=== PATIENT | female | born 1960 | race Caucasian/White ===

== ENCOUNTER 2019-12-31 16:21 | Outpatient (CLI) | payer BC, SELFPAY ==
--- NOTE | 2019-12-31 | XR_ITS ---
WS: [id number] WRIST RIGHT TECHNIQUE: 3 views of the right wrist CLINICAL INFORMATION: PT FELL THIS AM, RT WRIST INJURY COMPARISON: None. FINDINGS: Impacted fracture distal radial metaphysis with mild dorsal angulation of the distal fragment. Intra- articular extension. Distal ulna is normal. Soft tissue edema. Scaphoid appears normal. 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 XR/XR wrist RT min 3V* [id number] IMPRESSION: 1. Impacted fracture distal radial metaphysis with mild dorsal angulation dist al fragment. Intra-articular extension. 2. Soft tissue edema.
== END 2019-12-31 16:22 | disposition home or self-care (01) ==
LOC: RADOUTREAD 01-01 07:34
PROVIDERS: Family Provider Family Medicine; PCP Family Medicine; Visit Provider Nurse Practitioner
DX: Z01.89 Encounter for other specified special examinations (principal)

== ENCOUNTER 2020-01-02 09:07 | Day surgery (SDC) | payer BC, SELFPAY ==
[2020-01-01 16:17] VITALS: BMI 17.3
[2020-01-02] VITALS (12 sets, daily range): BP systolic 130–194; BP diastolic 80–115; PULSE 78–109; RESP 12–20; TEMP 36.1–37.1; O2SAT 94–100
--- NOTE | 2020-01-02 | XR_ITS ---
WS: [id number] Right wrist, AP and lateral C-arm fluoroscopy views of the right wrist, 01/02/2020 Clinical Data: ORIF RIGHT WRIST Comparison: Right wrist, 12/31/2019. Findings: Internal fixation of the distal radial fracture with a ventral plate attached with at least 9 orthope dic screws is seen. The distal ulna is normal. XR/XR wrist RT 2V [id number] Impression: Internal fixation of distal right radial fracture.
--- NOTE | 2020-01-02 | SCC_ITS ---
Procedure Done: Open reduction internal fixation right distal radius comminuted intra-articular displaced fracture utilizing the Raffi intermediate short distal radius plate 96.5 seconds of fluoroscopic guidance, for a cumulative dose of 1.21 mGy, was provided to Dr. Briones by the radiology department. C-arm images of the RIGHT wrist were saved for the patient's permanent record. [facility]
--- NOTE | 2020-01-02 10:13 | ANES.PREANE2 ---
Pre-Anesthetic Assessment Pre-Anesthetic Assessment: Height/Weight: Height 1.6 m Weight 44.452 kg Preop Diagnosis: Right Distal Radius Fracture Proposed Procedure: Operation Date: 01/02/20 11:10 Proposed Procedures p ORIF Wrist [id number](Not Applicable) - Nelsy Briones MD Last Intake: 20:00 Social: Social History: Tobacco Packs per day: 1 Pack years: 44 Exam: Pre-Anes Outpt Exam: alert, oriented x 3, clear to auscultation bilaterally and regular rate & rhythm Airway: Submandibular: WNL Cervical ROM: WNL MP: 1 Dentition: False, Partials and Full CV/HEM: CV/HEM: HTN Metabolic: Metabolic: Hyperlipidemia Anesthetic Plan: ASA status: 3 PFSH Anesthesia PFSH: Social History Smoking and tobacco status: current every day smoker cigarettes Packs smoked per day: 1 Alcohol intake: current Data Anesthesia Cardiac Studies: No Data to Display
--- NOTE | 2020-01-02 10:20 | W.PM.OPSUD ---
Surgery/Procedure H&P Update DATE OF PROCEDURE: January 02, 2020 DATE H&P PERFORMED: 01/01/20 H&P UPDATE INFORMATION: I have reviewed H&P completed within last 30 days, I have examined patient prior to procedure and H&P to be scanned into chart PREOP DIAGNOSIS: Right Distal Radius Fracture PLANNED PROCEDURE: Operation Date: 01/02/20 11:10 Proposed Procedures p ORIF Wrist [id number](Not Applicable) - Nelsy Briones MD
--- NOTE | 2020-01-02 10:39 | ANES.PROC ---
Anesthesia Procedures Procedure/Date: 01/02/20 Right Axillary Nerve Block Procedure Narrative: R&B's of right axillary nerve block for ORIF right wrist disc'd to assist with postoperative pain control. Verbal and written consent obtained. Verse 2+1+1mg, Fentanyl 50ug. US utilized to identify right axillary PEREZ. Nerve stimulator at 0.8 mAMPS. 30cc total volume Ropvicaine 0.5% + Lido 2% with epi in 3:1 mix, in 5ccc incrments without problems/complications. Nerve Block ^: Nerve Block 1: Main Anesthesia: general anesthesia Time Out Performed: Yes Consent: requested by attending/covering physician, from patient, risks and benefits reviewed and patient agrees to proceed Nerve block location: axillary Anesthesia monitors applied: pulse oximetry Nerve block position: supine Anesthetic Used: lidocaine 2%, ropivicaine 0.5% and with epi Amount of anesthesia used (mL): 30 Ultrasound used to: other Nerve Stimulator Used?: Yes Interscalene/Femoral BLK: 2 stimuplex 22 g needle used for position and inplane approach Injection: neg aspiration of heme Patient Tolerated Procedure: well and no complications
[2020-01-02] MEDS: sodium chloride 0.9% 1,000 ML 30 ML IV (10:52)
[2020-01-02] MEDS: fentaNYL 50 mcg/mL INJ 2mL 100 MCG IVP (10:53)
[2020-01-02] MEDS: midazolam 1 mg/mL INJ 5 ML 5 MG IVP (10:54)
[2020-01-02] MEDS: vancomycin 1,000 MG SDV 1000 MG IRRIGATION (13:11)
[2020-01-02] MEDS: labetalol 5 mg/mL SDV 20mL IVP (14:25)
--- NOTE | 2020-01-02 14:46 | P.OP_ITS ---
Operative Report Date of procedure: January 02, 2020 Pre-op Diagnosis: Right Distal Radius and ulnar fractures with intra-articular extension and comminution Post-op diagnosis: same Procedure Done: Open reduction internal fixation right distal radius comminuted intra-articular displaced fracture utilizing the Raffi intermediate short distal radius plate Specimens removed/disposition: None Pathology: none sent Surgeon: Nelsy Briones [employer] Barista: [facility] OR technicians Anesthesia: General (Intubated) Estimated blood loss (mL): 5 Tourniquet time (min): 60 IV fluids (mL): 1,100 Urine output (mL): 0 Complications: None Findings: Comminuted distal radius fracture which was intra-articular with multiple fragments and significant shortening Condition: stable Disposition: same day Brief History: This 59-year-old woman was in her usual state of health when she fell suffering the above injury. The patient was seen at urgent care at [facility]. She was found to have a comminuted displaced intra-articular distal radius fracture with significant shortening. She was seen in the office and plans were made for surgical intervention as described above. Questions were answered and consents were signed. Procedure: Patient was brought to the operating theater, and after undergoing adequate general anesthesia per endotracheal tube preceded by an axillary block in the preop holding area, the patient's right upper extremity was prepped and draped in usual fashion utilizing DuraPrep. The patient had a tourniquet placed high on the arm prior to prepping and draping. Following prepping and draping, the arm was exsanguinated and the tourniquet was elevated. Total tourniquet time was 60 minutes at 250 mmHg. Prior to commencement of the surgical procedure, a surgical pause was performed. At the time of the surgical pause, we confirmed the site and side of surgery as well as the patient's identity and preoperative surgical markings. We also confirmed availability of equipment and appropriate preoperative IV antibiotics which was Ancef 2g. Fluoroscopy was also brought into position so that we could visualize the fracture and hardware throughout the surgical procedure. The fracture was evaluated prior to tourniquet placement. Following elevation of the tourniquet as well as the surgical pause, an incision was made along the palmaris longus and continued down onto the volar surface of the radius. Care was taken to avoid injury throughout the surgical procedure to the median nerve as well as to the radial artery. The flexor carpi radialis was retracted medially. We were able to essentially elevate the sheath of the flexor carpi radialis and then I was able to place my finger directly onto the distal radius. For the most part, the patient did her own dissection at the time of her injury. Soft tissues were elevated off the distal radius to allow access to the fracture and also to the volar aspect of the distal radial shaft. Fluoroscopy was used to determine whether or not the reduction was appropriate. We were able to reduce the fracture with some difficulty due to the significant comminution and osteopenia. We then evaluated the plate and chose the short anatomic 2 hole intermediate plate for the right distal radius. The plate was attached proximally and distally without difficulty. A combination of locking and nonlocking screws were utilized to attach the plate utilizing exclusively locking screws distally. We had excellent fixation and reduction of the fracture. Fluoroscopy was utilized during the procedure. Once the plate was fully attached, we had a near anatomic position to the distal radius and the distal radius was out to length. Being satisfied with position, the area was copiously irrigated. There were no fascial tissues to close, and therefore we closed the subcutaneous tissues with 3-0 interrupted Monocryl. We then placed a subcuticular 4-0 Monocryl suture which was running. This was followed by Dermabond, Steri-Strips, Telfa and Tegaderm. A volar splint was wrapped into position over soft roll and this was wrapped in place with an Kirby wrap. The tourniquet was released after 60 minutes. There were no complications. There were no specimens. Patient was returned to recovery room in a satisfactory condition. She was subsequently discharged home with family. She will follow- up with me as scheduled in her discharge instructions.
== END 2020-01-02 16:30 | disposition home or self-care (01) ==
PROVIDERS: Family Provider Family Medicine; PCP Family Medicine; Visit Provider Specialist
PROC: (CPT 25609; principal; 2020-01-02 10:50)
DX: S52.501A Unspecified fracture of the lower end of right radius, initial encounter for closed fracture (principal); S52.601A Unspecified fracture of lower end of right ulna, initial encounter for closed fracture; W19.XXXA Unspecified fall, initial encounter; F17.210 Nicotine dependence, cigarettes, uncomplicated; I10 Essential (primary) hypertension; E78.5 Hyperlipidemia, unspecified
CPT/HCPCS: 25609; 12345; 73100; 76000; 96374; 96375; C1713; J0690; J1100; J2001; J2250; J2405; J2704; J2795; J3010; J3370; J3490; J7030

== ENCOUNTER → 2020-01-15 10:38 | Outpatient (BNVA) | payer BC, SELFPAY | PROVIDERS: Family Provider Family Medicine; PCP Family Medicine; Visit Provider Specialist | DX: Z48.89 Encounter for other specified surgical aftercare (principal); S52.501A Unspecified fracture of the lower end of right radius, initial encounter for closed fracture | CPT/HCPCS: 73110 ==

== ENCOUNTER 2020-01-15 15:37 | Outpatient (CLI) | payer BC, SELFPAY | END 2020-01-15 15:38 | disposition home or self-care (01) | LOC: SPT 15:38 | PROVIDERS: Family Provider Family Medicine; PCP Family Medicine; Visit Provider Specialist | DX: Z46.89 Encounter for fitting and adjustment of other specified devices (principal); S52.571D Other intraarticular fracture of lower end of right radius, subsequent encounter for closed fracture with routine healing; X58.XXXD Exposure to other specified factors, subsequent encounter | CPT/HCPCS: L3982 ==

== ENCOUNTER → 2020-02-02 08:12 | Outpatient (BNVA) | payer BC, SELFPAY | PROVIDERS: Family Provider Family Medicine; PCP Family Medicine; Visit Provider Specialist | DX: Z48.89 Encounter for other specified surgical aftercare (principal); S52.501A Unspecified fracture of the lower end of right radius, initial encounter for closed fracture; X58.XXXA Exposure to other specified factors, initial encounter | CPT/HCPCS: 73110 ==

== ENCOUNTER → 2022-04-04 15:20 | Outpatient (BNVA) | payer OTHER, SELFPAY | PROVIDERS: Family Provider Family Medicine; Visit Provider Family Medicine | DX: F17.200 Nicotine dependence, unspecified, uncomplicated (principal); F10.10 Alcohol abuse, uncomplicated; I10 Essential (primary) hypertension; K52.9 Noninfective gastroenteritis and colitis, unspecified | CPT/HCPCS: 80053; 84439; 84443; 85025 ==

== ENCOUNTER 2022-11-05 06:00 | Outpatient (RCR) | payer OTHER, SELFPAY | END 2022-12-05 23:59 | disposition home or self-care (01) | LOC: SPT 06:00 | PROVIDERS: PCP Family Medicine; Visit Provider Internal Medicine | DX: I63.9 Cerebral infarction, unspecified (principal); R53.1 Weakness; R26.0 Ataxic gait | CPT/HCPCS: 97110; 97530 ==

== ENCOUNTER → 2023-08-09 12:59 | Outpatient (BNVA) | payer OTHER, SELFPAY | PROVIDERS: Family Provider Family Medicine; PCP Family Medicine; Visit Provider Family Medicine | DX: F10.10 Alcohol abuse, uncomplicated (principal); R68.89 Other general symptoms and signs; J06.9 Acute upper respiratory infection, unspecified; R53.82 Chronic fatigue, unspecified; R53.81 Other malaise; F17.200 Nicotine dependence, unspecified, uncomplicated; Z11.52 Encounter for screening for COVID-19 | CPT/HCPCS: 80053; 81000; 84443; 85025; 87400; 87426 ==

== ENCOUNTER 2023-08-11 13:43 | Emergency (ER) | payer OTHER, SELFPAY ==
[2023-08-11] VITALS (14 sets, daily range): BP systolic 137–257; BP diastolic 73–134; PULSE 83–95; RESP 14–22; TEMP 36.6; O2SAT 96–100
--- NOTE | 2023-08-11 13:57 | ED_ITS ---
HPI - Weakness General: Chief complaint: Weakness Stated complaint: stroke like symptoms Time Seen by Provider: 08/11/23 13:53 Source: patient Mode of arrival: ambulatory History of Present Illness: 61-year-old female presents emergency room complaining of generalized weakness particular in the lower extremities been ongoing for several weeks. Seen her primary care doctor yesterday due to extensive review of systems and evaluation. She had some elevation of transaminases and alk phos as well as some hyponatremia her hemoglobin is normal her platelets were normal. She does admit to regular use of alcohol 6 pack or more per day and has been doing this for decades. She has no focal neurologic deficits. No suggestion of a stroke NIH score at the time of presentation is 0. Reviewing her primary care doctor's note yesterday these are similar findings as she presented to his office. Laboratory tests from yesterday were reviewed but not repeated today as there is been no significant change in symptoms or any new or worsening of her chronic symptoms. MD Complaint: generalized weakness Relieving factors: none Exacerbating factors: exertion (Fatigue worsens when she goes for a walk) Associated symptoms: Denies chest pain, chills, dysuria, fever(s) or headache(s) Review of Systems Const: Reports: fatigue and malaise; Denies: fever(s) or chills Card: Denies: chest pain Resp: Denies: dyspnea GI: Denies: abdominal pain : Denies: dysuria Musc: Denies: neck pain or back pain Skin/Breast: Denies: pruritus Neuro: Denies: headache(s) [facility] ED PFSH: Medical History Alcohol abuse Closed fracture of distal ends of right radius and ulna Hypertension Insomnia Nicotine addiction Family History Father Stroke Denies family history of Hypertension Social History Smoking and tobacco status: current every day smoker cigarettes Packs smoked per day: 1 Alcohol intake: current Substance/Drug Use: never Physical Exam Const: COMMON NORMALS: no acute distress GENERAL APPEARANCE: cooperative and comfortable ORIENTATION/CONSCIOUSNESS: Yes awake, Yes oriented to person, Yes oriented to place and Yes oriented to time HENMT: COMMON NORMALS: normocephalic, atraumatic and hearing grossly normal bilaterally HEAD & SCALP: normocephalic and atraumatic Resp: COMMON NORMALS: normal respiratory effort, No retractions, No use of accessory muscles and clear to auscultation bilaterally AUSCULTATION: clear to auscultation bilaterally Cardio: COMMON NORMALS: regular rate, regular rhythm and No murmurs present (Cardio) RATE: regular rate RHYTHM: regular rhythm GI: COMMON NORMALS: Soft to palpation and No hepatosplenomegaly present AUSCULTATION: Yes normoactive bowel sounds PALPATION: Yes Soft to palpation, No Tenderness to palpation present (GI), No Guarding due to palpation present (GI) and Yes No hepatosplenomegaly present Extremity: COMMON NORMALS: normal to inspection, capillary refill normal, no clubbing, cyanosis or edema, no calf tenderness and no pedal edema Neuro: SENSORIUM/ORIENTATION: Yes oriented to person, Yes oriented to place and Yes oriented to time Skin: COMMON NORMALS: no rashes or lesions noted GENERAL SKIN EXAM: no rashes or lesions noted Course Vital Signs: Vital signs: Vital Signs Temperature 97.8 F 08/11/23 13:47 Pulse Rate 84 08/11/23 15:00 Respiratory Rate 19 H 08/11/23 15:00 Blood Pressure 137/73 08/11/23 15:00 Pulse Oximetry 96 08/11/23 15:00 Oxygen Delivery Me thod Room Air 08/11/23 13:47 MDM - Weakness Medical Decision Making Labs reviewed from yesterday. Blood pressure improved with medications given we will discharge patient home on amlodipine 5 mg daily lisinopril 10 mg daily. Encourage abstinence from alcohol. No acute findings she certainly does not appear to have had a stroke at this point there is no focal neurologic deficits this is been a longstanding issue per her history to me and to what she discussed with Dr. Aguilar yesterday recommend that she follow-up with Dr. Aguilar for further evaluation certainly should see him within the next week to reevaluate his her blood pressure. Medical Records I reviewed the patient's medical records. Lab Data I reviewed the patient's lab results. No radiology studies performed this visit Discharge Plan Discharge Patient Disposition: Home Clinical Impression: Hypertension, Alcohol abuse, Chronic fatigue and malaise Condition: Stable Prescriptions: New amlodipine 5 mg tablet 5 mg PO DAILY Qty: 30 0RF lisinopril 10 mg tablet 10 mg PO DAILY Qty: 30 0RF No Action albuterol sulfate 90 mcg/actuation HFA aerosol inhaler 2 puff inhalation Q6H PRN (Reason: shortness of breath or wheezing) Qty: 8.5 5RF multivitamin Tablet 1 tab PO DAILY Tylenol Sinus Congestion Pain 2-5-325 mg Tablet 1 - 2 tab PO DAILY PRN (Reason: Sinus Symptoms) Aspir-81 81 mg Tablet,Delayed Release (Dr/Ec) 81 mg PO QAM Blood Builder 1 cap PO DAILY trazodone 50 mg tablet 50 mg PO BEDTIME PRN (Reason: Sleep) Discharge Orders: Discharge ED (Routine); Ordered 08/11/23 Ordered By: Gibran Thompson Referrals: Sergo Aguilar MD [Primary Care Provider] - Discharge Diet: Usual diet Discharge Activity: Increase activity as tolerated Patient Instructions: Opioid Safety, Pain Management Activity Restrictions/Additional Instructions: You were seen today for weakness and fatigue. The laboratory tests that your primary care doctor did yesterday were reviewed. There is some mild elevation of liver enzymes this is likely due to alcohol intake. Your blood pressure was markedly elevated when you arrived. You are given prescriptions for 2 oral antihypertensives both are once daily follow-up with your primary care doctor. Coding Level of Care Code ED Customer Service Security Officer for Samantha Clemens
[2023-08-11] MEDS: hyDRALAzine 20 mg/mL INJ 1 mL IVP (14:31)
[2023-08-11] MEDS: labetalol 5 mg/mL SDV 20mL 10 MG IVP (14:31)
[2023-08-11] MEDS: amlodipine 10 mg Tablet PO (14:32)
== END 2023-08-11 16:08 | disposition home or self-care (01) ==
PROVIDERS: Emergency Provider Family Medicine; PCP Family Medicine
DX: I10 Essential (primary) hypertension (principal); F10.10 Alcohol abuse, uncomplicated; R53.83 Other fatigue; R53.81 Other malaise; Z79.02 Long term (current) use of antithrombotics/antiplatelets; F17.210 Nicotine dependence, cigarettes, uncomplicated
CPT/HCPCS: 96374; 96375; 99284; J0360; J3490

== ENCOUNTER → 2023-08-15 13:05 | Outpatient (BNVA) | payer OTHER, SELFPAY | PROVIDERS: PCP Family Medicine; Visit Provider Family Medicine | DX: M60.9 Myositis, unspecified (principal); R53.81 Other malaise; R53.82 Chronic fatigue, unspecified; E55.9 Vitamin D deficiency, unspecified | CPT/HCPCS: 82085; 82306; 82550; 82607; 82746; 85651 ==

== ENCOUNTER 2023-08-28 06:31 | Inpatient (IN) | payer OTHER, SELFPAY ==
--- NOTE | 2023-08-28 06:33 | CTR_ITS ---
PROCEDURE INFORMATION: Exam: CT Head Without Contrast Exam date and time: 08/28/2023 6:30 AM Age: 63 years old Clinical indication: Stroke-like symptoms; Lt upper extremity and lt lower extremity weakness; Additional info: Stroke like symptoms TECHNIQUE: Imaging protocol: Computed tomography of the head without contrast. Radiation optimization: All CT scans at this facility use at least one of these dose optimization techniques: automated exposure control; mA and/or kV adjustment per patient size (includes targeted exams where dose is matched to clinical indication); or iterative reconstruction. Other technique: STROKE PROTOCOL was implemented. REPORTING DATA: Count of CT and Cardiac NM exams in prior 12 months: This patient has received 0 known CTs and 0 known cardiac nuclear medicine studies in the 12 months prior to the current study. COMPARISON: No relevant prior studies available. RADIATION DOSE METRICS: Total DLP (mGy-cm): 1006.5 FINDINGS: Brain: There is no evidence of intracranial hemorrhage. No mass effect or midline shift. There are mild confluent periventricular hypodensities consistent with chronic microischemic changes of white matter. 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 (01/29 - , , - ) Cerebral ventricles: The ventricles and sulci are appropriate for the patient's age. Paranasal sinuses: There are no air-fluid levels. Mastoid air cells: The visualized mastoid air cells are well aerated. Bones/joints: No acute fracture. Soft tissues: Unremarkable. CT/CT head wo con* [id number] IMPRESSION: 1. 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 If acute infarction is strongly suspected, consider correlation with MRI, if clinically indicated. 2. No acute intracranial findings. 3. Mild cerebral small-vessel disease. ASSESSMENT: ASPECTS ([place] Stroke Program Early CT Score) is 10.
[2023-08-28 06:34] VITALS: BP 174/86; PULSE 83; RESP 16; TEMP 36.5; O2SAT 95; BMI 19.1
--- NOTE | 2023-08-28 06:44 | W.ED.NEUROSD ---
HPI - Neuro Symptoms/Deficit General: Chief Complaint: Neuro Symptoms/Deficit Stated Complaint: stroke like symptoms Time Seen by Provider: 08/28/23 06:44 Source: patient and family Mode of arrival: EMS History of Present Illness: 63-year-old female presents to the emergency room with complaints of inability to move her left leg. She woke up this way this morning. She reports that yesterday around 6:30 PM she went to take her boots off and her left leg felt weak for a time like it was going to give out she had a little difficulty that seem to return to normal after that and then around 1030 she went to bed. She states at that time she went to bed and everything seemed to be functioning normally. When she woke up this morning around 5:30 AM she was unable to move her left leg she also has some weakness in her left arm. Her speech is normal. She is not having any visual difficulty. Her initial NIH score is 7. Her last known well is approximately 10:30 PM, making her 8 hours from last known well at the time she presented to the emergency room. Patient was seen in the emergency room 2 week ago with elevated blood pressure and started on antihypertensives Onset (ago): hour(s) (8) Time: 06:30 Last Observed Normal: 22:30 Timing confirmed by: family member Location: left arm and left leg Severity: moderate Quality: weak and numb Relieving factors: none Exacerbating factors: none Context: other (Wake-up symptoms) On Anticoagulants: No Associated symptoms: Reports tingling; Deny chest pain, cough, diaphoresis, fevers/chills, headache(s), anorexia, malaise, nausea, seizures, short of breath, syncope, vertigo, vomiting or weakness Treatments Prior to Arrival: Aspirin (Takes 81 mg aspirin daily) Review of Systems Const: Denies: malaise or diaphoresis Card: Denies: chest pain or syncope Resp: Denies: dyspnea GI: Denies: nausea or vomiting : Denies: dysuria, urinary frequency or urinary urgency Musc: Denies: neck pain or back pain Skin/Breast: Denies: rash Neuro: Denies: headache(s) or vertigo PFS ED PFSH: Medical History Alcohol abuse Closed fracture of distal ends of right radius and ulna Hypertension Insomnia Nicotine addiction Family History Father Stroke Denies family history of Hypertension Social History Smoking and tobacco/nicotine status: current every day tobacco/nicotine user cigarettes Packs smoked per day: 1 Alcohol intake: current Substance/Drug Use: never NIH stroke score NIHSS: Level Of Consciousness - 1a: 0 Level Of Consciousness Questions - 1b: Both Correct Level Of Consciousness Commands - 1c: Both Correct Best Gaze - 2: Normal Visual [place] - 3: No Visual Loss Facial Palsy - 4: Normal Motor Arm Right - 5: No Drift Motor Arm Left - 5: Drift Motor Leg Right - 6: No Drift Motor Leg Left - 6: No Effort Against [place] Limb Ataxia - 7: Present In Two Limbs Sensory - 8: Mild To Moderate Loss Best Language - 9: No Aphasia Dysarthia - 10: Normal Extinction And Inattention - 11: 0 Score: Total Score: 7 Physical Exam Const: GENERAL APPEARANCE: cooperative and comfortable ORIENTATION/CONSCIOUSNESS: Yes awake, Yes oriented to person, Yes oriented to place and Yes oriented to time HENMT: COMMON NORMALS: normocephalic, atraumatic and hearing grossly normal bilaterally HEAD & SCALP: normocephalic and atraumatic Resp: COMMON NORMALS: normal respiratory effort, No retractions, No use of accessory muscles and clear to auscultation bilaterally AUSCULTATION: clear to auscultation bilaterally Cardio: COMMON NORMALS: regular rate, regular rhythm and No murmurs present (Cardio) RATE: regular rate RHYTHM: regular rhythm GI: COMMON NORMALS: Soft to palpation and No hepatosplenomegaly present AUSCULTATION: Yes normoactive bowel sounds PALPATION: Yes Soft to palpation, No Tenderness to palpation present (GI), No Guarding due to palpation present (GI) and Yes No hepatosplenomegaly present Extremity: COMMON NORMALS: capillary refill normal, no clubbing, cyanosis or edema, no calf tenderness and no pedal edema Neuro: SENSORIUM/ORIENTATION: Yes oriented to person, Yes oriented to place and Yes oriented to time OTHER: NIH 7 see documentation below Skin: COMMON NORMALS: no rashes or lesions noted GENERAL SKIN EXAM: no rashes or lesions noted Course Vital Signs: Vital signs: Vital Signs Temperature 97.7 F 08/28/23 06:34 Pulse Rate 85 08/28/23 07:41 Respiratory Rate 16 08/28/23 06:34 Blood Pressure 153/118 08/28/23 07:41 Pulse Oximetry 96 08/28/23 07:41 Oxygen Delivery Me thod Room Air, Nasal C annula, Aerosol Ma sk 08/28/23 06:34 MDM - Neuro Symptoms/Deficit Medical Decision Making Acute CVA with an NIH of 7. She is outside of the timeframe for any thrombolytics. 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 Will admit for further work-up of her CVA. We will also need to be watched closely for alcohol withdrawal given her history. Permissive hypertension at this time. Medical Records I reviewed the patient's medical records. Lab Data I reviewed the patient's lab results. 08/28/23 06:43 08/28/23 06:[address] 08/28/23 06:33 IMPRESSION: 1. 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 If acute infarction is strongly suspected, consider correlation with MRI, if clinically indicated. 2. No acute intracranial findings. 3. Mild cerebral small-vessel disease. ASSESSMENT: ASPECTS ([place] Stroke Program Early CT Score) is 10. Head/Neck CTA 08/28/23 06:45 IMPRESSION: 1. Occlusion of the proximal petrous segment of the left internal carotid artery with moderate to severe stenosis of the remainder of the left internal carotid artery. 2. Otherwise patent [id number]. IMPRESSION: 1. Complete occlusion the proximal left internal carotid artery with severe stenosis of the remainder of the cervical segment. 2. Mild stenosis of the proximal right internal carotid artery. REFERENCES: NASCET CRITERIA. The degree of stenosis in the cervical segment of the internal carotid artery is based on NASCET criteria. Normal is no stenosis. Mild is less than 50% stenosis. Moderate is 50-69% stenosis. Severe is 70% to 99% stenosis. Total occlusion is no detectable patent lumen. ADDENDUM: 08/28/23 [id number] THIS REPORT CONTAINS FINDINGS THAT MAY BE CRITICAL TO PATIENT CARE. The findings were verbally communicated via telephone conference with GIBRAN MARQUIS at 7:55 AM CDT on 08/28/2023. The findings were acknowledged and understood. Laboratory Results WBC 6.27 10^3/uL (3.29-11.43) 08/28/23 06:43 RBC 4.87 10^6/uL (3.85-5.65) 08/28/23 06:43 Hgb 15.30 g/dL (11.27-16.99) 08/28/23 06:43 Hct 45.0 % (36-47) 08/28/23 06:43 MCV 92.4 fl (85-98) 08/28/23 06:43 MCH 31.4 pg (27-33) 08/28/23 06:43 MCHC 34.0 g/dL (30-55) 08/28/23 06:43 RDW 12.6 % (12.1-15.1) 08/28/23 06:43 Plt Count 317 10^3/cmm (157-399) 08/28/23 06:43 MPV 8.8 fL (7.4-10.4) 08/28/23 06:43 Neut % (Auto) 46.7 % 08/28/23 06:43 Lymph % (Auto) 34.0 % 08/28/23 06:43 [place] % (Auto) 11.2 % 08/28/23 06:43 Eos % (Auto) 7.3 % 08/28/23 06:43 Baso % (Auto) 0.5 % 08/28/23 06:43 Neut # (Auto) 2.93 10^3/uL (1.8-7.7) 08/28/23 06:43 Lymph # (Auto) 2.1 10^3/uL (0.8-4.8) 08/28/23 06:43 [place]rill # (Auto) 0.7 10^3/uL (0.2-0.9) 08/28/23 06:43 Eos # (Auto) 0.5 10^3/uL (0.0-0.8) 08/28/23 06:43 Baso # (Auto) 0.0 10^3/uL (0.0-0.1) 08/28/23 06:43 Nucleated RBC % (auto) 0 % 08/28/23 06:43 Nucleated RBCs # 0.0 /100WBC 08/28/23 06:43 PT 12.00 SECONDS (12.1-14.9) L 08/28/23 06:43 INR 0.86 (0.8-1.2) 08/28/23 06:43 APTT 29.4 SECONDS (23.9-36.7) 08/28/23 06:43 Sodium 137 mmol/L (136-145) 08/28/23 06:43 Potassium 4.4 mmol/L (3.5-5.1) 08/28/23 06:43 Chloride 102 mmol/L (98-107) 08/28/23 06:43 Carbon Dioxide 28 mmol/L (22-29) 08/28/23 06:43 Anion Gap 11.4 (5-19) 08/28/23 06:43 BUN 18 mg/dL (8-23) 08/28/23 06:43 Creatinine 1.0 mg/dL (0.5-0.9) H 08/28/23 06:43 GFR Calculation 56.2 mL/min (90-130) L 08/28/23 06:43 Glucose 100 mg/dL (65-115) 08/28/23 06:43 POC Glucose 94 mg/dL (70-110) 08/28/23 06:41 Calculated Osmolality 286 mOsm/kg (285-295) 08/28/23 06:43 Calcium 9.8 mg/dL (8.5-10.5) 08/28/23 06:43 Total Bilirubin 0.2 mg/dL (0.15-1.2) 08/28/23 06:43 AST 21 U/L (0-32) 08/28/23 06:43 ALT 18 U/L (0-33) 08/28/23 06:43 Alkaline Phosphatase 84 U/L (35-105) 08/28/23 06:43 Total Protein 7.0 g/dL (6.6-8.7) 08/28/23 06:43 Albumin 4.5 g/dL (3.5-5.2) 08/28/23 06:43 Globulin 2.5 g/dL (1.3-4.6) 08/28/23 06:43 Urine Color Yellow (Yellow) 08/28/23 06:49 Urine Appearance Clear (CLEAR) 08/28/23 06:49 Urine pH 6 (5-7) 08/28/23 06:49 Ur Specific [place] 1.010 (1.005-1.030) 08/28/23 06:49 Urine Protein Neg (Negative) 08/28/23 06:49 Urine Glucose (UA) Norm (Normal) 08/28/23 06:49 Urine Ketones Negative (Negative) 08/28/23 06:49 Urine Blood Neg (Negative) 08/28/23 06:49 Urine Nitrate Negative (Negative) 08/28/23 06:49 Urine Bilirubin Neg (Negative) 08/28/23 06:49 Urine Urobilinogen Norm mg/dL (Negative) 08/28/23 06:49 Ur Leukocyte Esterase Negative (Negative) 08/28/23 06:49 Urine Opiates Screen Negative ng/mL (Negative) 08/28/23 06:49 Ur Barbiturates Screen Negative ng/mL (Negative) 08/28/23 06:49 Ur Phencyclidine Scrn Negative ng/mL (Negative) 08/28/23 06:49 Ur Amphetamines Screen Negative ng/mL (Negative) 08/28/23 06:49 U Benzodiazepines Scrn Positive ng/mL (Negative) H 08/28/23 06:49 Urine Cocaine Screen Negative ng/mL (Negative) 08/28/23 06:49 U Marijuana (THC) Screen Positive ng/mL (Negative) H 08/28/23 06:49 Ethyl Alcohol < 10 mg/dL (0-10) 08/28/23 06:43 All radiology interpretation(s) finalized by discharge Discharge Plan Discharge Patient Disposition: Admitted As Inpatient Clinical Impression: Cerebrovascular accident, Alcohol abuse, Chronic fatigue and malaise, Hypertension Condition: Stable Prescriptions: No Action trazodone 50 mg tablet 100 mg PO BEDTIME PRN (Reason: Sleep) Qty: 60 1RF Rx Instructions: 1 or 2 tab at bed time diazepam 5 mg tablet 5 mg PO TID PRN (Reason: muscle spasm) 15 Days Qty: 45 0RF albuterol sulfate 90 mcg/actuation HFA aerosol inhaler 2 puff inhalation Q6H PRN (Reason: shortness of breath or wheezing) Qty: 8.5 5RF multivitamin Tablet 1 tab PO DAILY Tylenol Sinus Congestion Pain 2-5-325 mg Tablet 1 - 2 tab PO DAILY PRN (Reason: Sinus Symptoms) aspirin [Aspir-81] 81 mg Tablet,Delayed Release (Dr/Ec) 81 mg PO QAM Blood Builder 1 cap PO DAILY amlodipine 5 mg tablet 5 mg PO DAILY Qty: 30 0RF lisinopril 10 mg tablet 10 mg PO DAILY Qty: 30 0RF Referrals: Sergo Aguilar MD [Primary Care Provider] - Coding Level of Care Code ED Meat Boner for Jonathang Sarath
--- NOTE | 2023-08-28 06:45 | CTR_ITS ---
PROCEDURE INFORMATION: Exam: CTA Head With Contrast, Arteriography Exam date and time: 08/28/2023 6:56 AM Age: 63 years old Clinical indication: Paralysis, transient of limb; Additional info: Acute CVA TECHNIQUE: Imaging protocol: Computed tomographic angiography of the head with contrast. Exam focused on the arteries. 3D rendering (Not supervised by radiologist): MIP and/or 3D reconstructed images were created by the technologist. Radiation optimization: All CT scans at this facility use at least one of these dose optimization techniques: automated exposure control; mA and/or kV adjustment per patient size (includes targeted exams where dose is matched to clinical indication); or iterative reconstruction. Contrast material: OMNI 350; Contrast volume: 100 ml; Contrast route: INTRAVENOUS (IV); REPORTING DATA: Count of CT and Cardiac NM exams in prior 12 months: This patient has received 0 known CTs and 0 known cardiac nuclear medicine studies in the 12 months prior to the current study. COMPARISON: CT head wo con* [id number] 08/28/2023 6:30 AM RADIATION DOSE METRICS: Total DLP (mGy-cm): 373.42 FINDINGS: ANTERIOR CIRCULATION: Right internal carotid artery: Intracranial segment is patent with no significant stenosis. No aneurysm. Right middle cerebral artery: No occlusion or significant stenosis. No aneurysm. Right anterior cerebral artery: No occlusion or significant stenosis. No aneurysm. Left internal carotid artery: There is occlusion of the proximal petrous segment of the left internal carotid artery. There is moderate to severe stenosis of the remainder of the petrous, cavernous, and supraclinoid segments. Left middle cerebral artery: No occlusion or significant stenosis. No aneurysm. Left anterior cerebral artery: No occlusion or significant stenosis. No aneurysm. POSTERIOR CIRCULATION: Right vertebral artery: No occlusion or significant stenosis. No aneurysm. Left vertebral artery: No occlusion or significant stenosis. No aneurysm. Basilar artery: No occlusion or significant stenosis. No aneurysm. Right posterior cerebral artery: No occlusion or significant stenosis. No aneurysm. Left posterior cerebral artery: No occlusion or significant stenosis. No aneurysm. Brain: No definite mass, mass effect, or midline shift. Cerebral ventricles: No ventriculomegaly. Bones/joints: Unremarkable. No acute fracture. Soft tissues: Unremarkable. PROCEDURE INFORMATION: Exam: CTA Neck With Contrast Exam date and time: 08/28/2023 6:56 AM Age: 63 years old Clinical indication: Paralysis, transient of limb; Additional info: Acute CVA TECHNIQUE: Imaging protocol: Computed tomographic angiography of the neck with contrast. Exam focused on the cervical segments of the vasculature. 3D rendering (Not supervised by radiologist): MIP and/or 3D reconstructed images were created by the technologist. Radiation optimization: All CT scans at this facility use at least one of these dose optimization techniques: automated exposure control; mA and/or kV adjustment per patient size (includes targeted exams where dose is matched to clinical indication); or iterative reconstruction. Contrast material: OMNI 350; Contrast volume: 100 ml; Contrast route: INTRAVENOUS (IV); REPORTING DATA: Count of CT and Cardiac NM exams in prior 12 months: This patient has received 0 known CTs and 0 known cardiac nuclear medicine studies in the 12 months prior to the current study. COMPARISON: CT head wo con* [id number] 08/28/2023 6:30 AM RADIATION DOSE METRICS: Total DLP (mGy-cm): 373.42 FINDINGS: Right common carotid artery: There is heavy plaque at the right carotid bulb and bifurcation. The right common carotid artery is otherwise patent. Right internal carotid artery: There is stenosis of the proximal right internal carotid artery measuring less than 50% secondary to moderate plaque. The remainder of the right internal carotid artery is patent. Right external carotid artery: No occlusion or stenosis of the origin. Left common carotid artery: There is heavy plaque at the left carotid bulb and bifurcation. Left internal carotid artery: There is complete occlusion of the proximal left internal carotid artery secondary to heavy soft and calcified plaque. There is severe stenosis of the remainder of the cervical segment of the left internal carotid artery. Left external carotid artery: No occlusion or stenosis of the origin. Right vertebral artery: No stenosis. No dissection or occlusion. Left vertebral artery: No stenosis. No dissection or occlusion. Soft tissues: Normal. No significant soft tissue swelling. Bones/joints: No acute fracture. Lungs: There is mild COPD noted. CT/CT angio headneck* [id number] IMPRESSION: 1. Occlusion of the proximal petrous segment of the left internal carotid artery with moderate to severe stenosis of the remainder of the left internal carotid artery. 2. Otherwise patent [id number]. IMPRESSION: 1. Complete occlusion the proximal left internal carotid artery with severe stenosis of the remainder of the cervical segment. 2. Mild stenosis of the proximal right internal carotid artery. REFERENCES: NASCET CRITERIA. The degree of stenosis in the cervical segment of the internal carotid artery is based on NASCET criteria. Normal is no stenosis. Mild is less than 50% stenosis. Moderate is 50-69% stenosis. Severe is 70% to 99% stenosis. Total occlusion is no detectable patent lumen.
--- NOTE | 2023-08-28 06:46 | ECG_ITS ---
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 Measurements Intervals Steele Rate: 87 P: 84 CA: 141 QRS: 86 QRSD: 94 T: 82 QT: 376 QTc: 455 Interpretive Statements SINUS RHYTHM No previous ECG available for comparison Electronically Signed On 08-28-2023 11:19:43 CDT by Orlando Lin M.D. [email or web address]
[2023-08-28 06:54] LABS: Glucose Point of Care 94 mg/dL (70-110)
[2023-08-28 06:54] LABS: Basophils % 0.5 %; Eosinophils # 0.5 10^3/uL (0.0-0.8); Eosinophils % 7.3 %; Lymphocytes # 2.1 10^3/uL (0.8-4.8); Mean Corpuscular Hemoglobin 31.4 pg (27-33); Mean Corpuscular Volume 92.4 fl (85-98); Mean Platelet Volume 8.8 fL (7.4-10.4); Monocytes # 0.7 10^3/uL (0.2-0.9); Monocytes % 11.2 %; Neutrophils # 2.93 10^3/uL (1.8-7.7); Neutrophils % 46.7 %; Nucleated Red Blood Cells % 0 %; Platelet Count 317 10^3/cmm (157-399); Red Blood Count 4.87 10^6/uL (3.85-5.65); Red Cell Distribution Width 12.6 % (12.1-15.1); White Blood Count 6.27 10^3/uL (3.29-11.43)
[2023-08-28 07:04] LABS: Add Urine Microscopic? NO; Charge for UA Resulting for Rev
[2023-08-28] MEDS: iohexol 350 mg/mL 500 mL Btl (per mL) IV (07:07)
[2023-08-28 07:10] LABS: INR 0.86 (0.8-1.2)
[2023-08-28 07:11] LABS: Partial Thromboplastin Time 29.4 SECONDS (23.9-36.7)
[2023-08-28 07:19] LABS: Alanine Aminotransferase 18 U/L (0-33); Albumin Level 4.5 g/dL (3.5-5.2); Alkaline Phosphatase 84 U/L (35-105); Anion Gap 11.4 (5-19); Aspartate Amino Transferase 21 U/L (0-32); Blood Urea Nitrogen 18 mg/dL (8-23); Calcium 9.8 mg/dL (8.5-10.5); Carbon Dioxide 28 mmol/L (22-29); Chloride 102 mmol/L (98-107); Globulin 2.5 g/dL (1.3-4.6); Glomerular Filtration Rate 56.2 mL/min (90-130); Glucose 100 mg/dL (65-115); Osmolality Calculated 286 mOsm/kg (285-295); Potassium 4.4 mmol/L (3.5-5.1); Sodium 137 mmol/L (136-145); Total Bilirubin 0.2 mg/dL (0.15-1.2)
[2023-08-28 07:21] LABS: Alcohol Level < 10 mg/dL (0-10)
[2023-08-28 07:22] LABS: Bilirubin Urine Neg (Negative); Blood Urine Neg (Negative); Glucose Urine UA Norm (Normal); Ketones Urine Negative (Negative); Leukocyte Esterase Urine Negative (Negative); Nitrate Urine Negative (Negative); Protein Urine Neg (Negative); Urine Appearance Clear (CLEAR); Urine Color Yellow (Yellow); Urobilinogen Urine Norm (Negative); pH Urine 6 (5-7)
[2023-08-28 07:28] LABS: Amphetamines Screen Urine Negative (Negative); Barbiturates Screen Urine Negative (Negative); Benzodiazepines Screen Urine Positive (Negative); Cocaine Screen Urine Negative (Negative); Opiate Screen Urine Negative (Negative); PCP Screen Urine Negative (Negative); THC Screen Urine Positive (Negative)
[2023-08-28 07:41] VITALS: BP 153/118; PULSE 85; O2SAT 96
[2023-08-28 08:45] VITALS: PULSE 84; O2SAT 94
--- NOTE | 2023-08-28 09:06 | PM.HP ---
Documented by User: Bernadette Clark 08/28/23 09:55 Providers/Chief Complaint Admitting Physician: Montana Rivera MD Primary Care Provider: Sergo Aguilar MD Chief Complaint: stroke like symptoms History of Present Illness Marisol Urrutia is a 63 year old female who presented to the ED after one day of left lower extremity weakness, movement and sensation deficit. Mrs. Urrutia arrived with her , and said that yesterday, her left foot started to feel numb, but she was still able to move around her house. She went to bed last night, and when she woke up, she was unable to move her left leg. Also, she describes having weakness in her left arm for the last few days. She denies chest pain, shortness of breath, headache, or inability to maintain bladder control at this time. Three weeks ago, she had a similar episode where she was at work and starting having a severe headache and weakness in her legs that caused her to fall to the ground. Over time, her symptoms resolved until the same weakness happened yesterday. She also says she was recently diagnosed with hypertension after she was found to have a BP reading by her PCP with systolic in the 200s. She has smoked for 49 years, approximately 1.5 packs per day. Her only other concern other than neurologic deficits was tooth pain in her lower right incisor that she has concern for infection. While in the ED, pt received IV fluids and had head CT and head/neck CTA performed. Review of Systems General: Reports: 10 or more systems reviewed and unremarkable except in HPI and below Const: Denies: fever(s), chills, change in weight or night sweats Eyes: Denies: change in vision ENMT: Reports: dental pain (right lower incisor) Card: Denies: chest pain, palpitations or swelling of feet/ankles Resp: Denies: dyspnea GI: Denies: abdominal pain, nausea, vomiting, diarrhea, constipation or hematochezia : Denies: difficulty voiding or dysuria Musc: Reports: muscle weakness Neuro: Reports: numbness in extremities, weakness in extremities, sensory changes and difficulty walking; Denies: headache(s), confusion, behavioral changes, Slurred speech present or seizure-like activity Medications/Allergies Home Medications Medication Instructions Recorded Confirmed Last Taken Type albuterol sulfate 90 mcg/actuation 2 puff inhalation Q6H PRN 07/16/23 10/24/23 Unknown Rx aerosol inhaler shortness of breath or wheezing #8.5 grams Blood Builder 1 cap PO DAILY 08/11/23 08/28/23 08/27/23 History amlodipine 5 mg tablet 5 mg PO DAILY #30 tabs 08/11/23 08/28/23 08/27/23 Rx aspirin 81 mg tablet,delayed 81 mg PO QAM 08/11/23 08/28/23 08/27/23 History release chlorpheniramine 2 1 - 2 tab PO DAILY PRN Sinus 08/11/23 08/28/23 Unknown History mg-phenylephrine 5 Symptoms mg-acetaminophen 325 mg tablet lisinopril 10 mg tablet 10 mg PO DAILY #30 tabs 08/11/23 08/28/23 08/27/23 Rx multivitamin 1 tab PO DAILY 08/11/23 08/28/23 08/27/23 History diazepam 5 mg tablet 5 mg PO TID PRN muscle spasm 15 08/15/23 08/28/23 08/27/23 Rx days #45 tabs trazodone 50 mg tablet 100 mg PO BEDTIME PRN Sleep #60 08/15/23 08/28/23 08/27/23 Rx tabs Allergies Allergy/AdvReac Type Severity Reaction Status Date / Time codeine Allergy itchy Verified 08/28/23 06:41 Penicillins AdvReac yeast Verified 08/28/23 06:41 infections PFSH Acute PFSH: Medical History (Updated 08/28/23 @ 08:01 by Gibran Thompson DO) Alcohol abuse Closed fracture of distal ends of right radius and ulna Hypertension Insomnia Nicotine addiction Surgical History (Updated 08/28/23 @ 09:45 by Butch Rivera MD) H/O section Hx of tonsillectomy Family History (Updated 08/28/23 @ 10:06 by Butch Rivera MD) Father Stroke Other CAD (coronary artery disease) Cancer Denies family history of Hypertension Social History Smoking and tobacco/nicotine status: current every day tobacco/nicotine user cigarettes Packs smoked per day: 1 Alcohol intake: current Substance/Drug Use: never Vitals/I&O/Wt Last Vital Signs Temp 97.7 F 08/28/23 06:34 Pulse 84 08/28/23 08:45 Resp 16 08/28/23 06:34 BP 153/118 08/28/23 07:41 Pulse Ox 94 08/28/23 08:45 O2 Del Method Room Air 08/28/23 08:45 Weight last 48 hrs Weight 48.988 kg Physical Exam Narrative: General: pt is alert, cooperative pt laying on ED bed breathing comfortably on room air. HEENT: atraumatic, normocephalic. Blue discoloration of right lower incisor with with tenderness present with pressure. Neck: supple, no lymphadenopathy, no thyromegaly. Cardiac: normal rate and rhythm, no murmurs appreciated. Respiratory: clear to auscultation bilaterally. Equal chest expansion. Abdomen: normoactive bowel sounds in al 4 quadrants. No abdominal tenderness to palpation. No obvious organomegaly. : deferred. Extremities: 2+ peripheral pulses in upper and lower extremities. Brisk capillary reflex. Skin: no cyanosis, edema, bruising, or rashes. Neurologic: oriented x4. CN II-XII intact. Sensation normal in upper extremities and right lower extremity. Sensation decreased distally at level of foot but improves at level of knee. Cerebellar function intact. Normal muscle strength or RIGHT upper and lower extremity. 4/5 muscle strenth in upper LEFT extremity. No movement of distal LEFT LOWER extremity, but 3/5 strength present at level of left knee. Gait not assessed. Data 08/28/23 06:43 08/28/23 06:43 Other Labs: Urine drug screen positive for benzodiazepines, THC Head CT showed evidence of remote infarction or old trauma in bilateral frontal lobes and mild cerebral small vessel disease, but no acute intracranial findings. Head/Neck CTA showed complete occlusion of proximal left internal carotid artery with severe stenosis of remainder of cervical segment. Also showed mild stenosis of proximal right internal carotid artery. EKG by my read shows sinus rhythm with normal axis and intervals. A&P Assessment and plan (1) Cerebrovascular accident: Pt CTA of head and neck indicative of complete occlusion of left ICA and mild stenosis of right ICA that likely led to left sided deficits, predominantly in lower extremity. Start aspirin, Plavix, and statin for further stroke prevention. Order CXR as part of stroke work-up. CBC, BMP daily. Physical therapy consulted to discuss rehab of lower extremity post-CVA. Start IVFs to ensure hydration and as part of stroke treatment plan. (2) Hypertension: Hold BP medications today to allow for permissive HTN following stroke. Will reassess need to restart medications tomorrow. CMP daily. (3) Nicotine addiction: Pt with significant smoking history. Will provide nicotine patches per pt request while in the hospital. Encourage smoking cessation as part of stroke preventing. (4) Alcohol abuse: Pt with history of alcohol use. Does not appear to be in withdrawal at this time, and pt states last drink was a few days ago. Will continue to monitor for withdrawal symptoms. Coding Level of Care Code 71017 Diagnoses Cerebrovascular accident I63.9 Hypertension I10 Nicotine addiction F17.200 Alcohol abuse F10.10 Time Spent (min) 53 Documented by User: Butch Rivera MD 08/28/23 10:19 Providers/Chief Complaint Chief Complaint: stroke like symptoms Medications/Allergies Home Medications Medication Instructions Recorded Confirmed Last Taken Type albuterol sulfate 90 mcg/actuation 2 puff inhalation Q6H PRN 05/20/23 08/28/23 Unknown Rx aerosol inhaler shortness of breath or wheezing #8.5 grams Blood Builder 1 cap PO DAILY 08/11/23 08/28/23 08/27/23 History amlodipine 5 mg tablet 5 mg PO DAILY #30 tabs 08/11/23 08/28/23 08/27/23 Rx aspirin 81 mg tablet,delayed 81 mg PO QAM 08/11/23 08/28/23 08/27/23 History release chlorpheniramine 2 1 - 2 tab PO DAILY PRN Sinus 08/11/23 08/28/23 Unknown History mg-phenylephrine 5 Symptoms mg-acetaminophen 325 mg tablet lisinopril 10 mg tablet 10 mg PO DAILY #30 tabs 08/11/23 08/28/23 08/27/23 Rx multivitamin 1 tab PO DAILY 08/11/23 08/28/23 08/27/23 History diazepam 5 mg tablet 5 mg PO TID PRN muscle spasm 15 08/15/23 08/28/23 08/27/23 Rx days #45 tabs trazodone 50 mg tablet 100 mg PO BEDTIME PRN Sleep #60 08/15/23 08/28/23 08/27/23 Rx tabs Allergies Allergy/AdvReac Type Severity Reaction Status Date / Time codeine Allergy itchy Verified 08/28/23 06:41 Penicillins AdvReac yeast Verified 08/28/23 06:41 infections PFSH Acute PFSH: Medical History (Updated 08/28/23 @ 08:01 by Gibran Thompson DO) Alcohol abuse Closed fracture of distal ends of right radius and ulna Hypertension Insomnia Nicotine addiction Surgical History (Updated 08/28/23 @ 09:45 by Butch Rivera MD) H/O section Hx of tonsillectomy Family History (Updated 08/28/23 @ 10:06 by Butch Rivera MD) Father Stroke Other CAD (coronary artery disease) Cancer Denies family history of Hypertension Social History Smoking and tobacco/nicotine status: current every day tobacco/nicotine user cigarettes Packs smoked per day: 1 Alcohol intake: current Substance/Drug Use: never Data 08/28/23 06:43 08/28/23 06:43 Other Labs: Urine drug screen positive for benzodiazepines, THC Head CT showed evidence of remote infarction or old trauma in bilateral frontal lobes and mild cerebral small vessel disease, but no acute intracranial findings. I reviewed this as well Chest x-ray read by me demonstrates likely COPD, normal cardiac silhouette, atherosclerosis in the aorta Head/Neck CTA showed complete occlusion of proximal left internal carotid artery with severe stenosis of remainder of cervical segment. Also showed mild stenosis of proximal right internal carotid artery. EKG by my read shows sinus rhythm with normal axis and intervals. A&P Assessment and plan (1) Cerebrovascular accident: Patient with acute CVA, right MCA territory on exam. CTA of head and neck indicative of complete occlusion of left ICA and mild stenosis of right ICA Start aspirin, Plavix, and statin for further stroke prevention. Order CXR as part of stroke work-up. CBC, BMP daily. Physical therapy consulted to discuss rehab of lower extremity post-CVA. OT and ST Start IVFs to ensure hydration and as part of stroke treatment plan. (2) Hypertension: Hold BP medications today to allow for permissive HTN following stroke. Will reassess need to restart medications tomorrow. Consider treatment if blood pressure greater than 1 220/120. CMP daily. (3) Nicotine addiction: (4) Alcohol abuse: Pt with history of alcohol use. Does not appear to be in withdrawal at this time, and pt states last drink was a few days ago. Monitor closely for any alcohol withdrawal. Will continue to monitor for withdrawal symptoms. Folate, thiamine Plan Anxiety. Ativan as needed Multiple other medical close as outlined in past medical history Full code Lovenox for DVT prophylaxis Patient seen with the medical student, in tandem, and this note was created with the student. Attestations Medical Necessity Statement*: Will require greater than 2 midnight stay for evaluation and treatment of CVA with significant impairment Diagnoses Cerebrovascular accident I63.9 Hypertension I10 Nicotine addiction F17.200 Alcohol abuse F10.10 Time Spent (min) 53
--- NOTE | 2023-08-28 09:50 | XR_ITS ---
WS: [id number] Exam: XR chest 1V portable [id number] Date/Time of Exam: 08/28/2023 9:57 AM Reason For Exam: cva Comparison 07/12/2016. The lungs are hyperinflated and clear. Normal cardiomediastinal silhouette. No pleural effusions. Reg ional bony elements are unremarkable. IMPRESSION: 1. Pulmonary hyperinflation which may indicate obstructive lung disease. No acute finding.
--- NOTE | 2023-08-28 10:40 | USCV_ITS ---
Marisol Urrutia Age: 63 Gender: F : 1960 Exam Date: 08/28/2023 12:17 Ordering Phys: Butch Rivera MD Technologist: Víctor De Jesus Exam Location: [facility] [place] Indication: cva BP: 157 / 90 HR: 129 Rhythm: Sinus Technical Quality: Adequate MEASUREMENTS (Male / Female) Normal Values 2D ECHO LV Diastolic Diameter PLAX 3.8 cm 4.2 - 5.9 / 3.9 - 5.3 cm LV Systolic Diameter PLAX 2.0 cm IVS Diastolic Thickness 1.0 cm 0.6 - 1.0 / 0.6 - 0.9 cm IVS Systolic Thickness 1.1 cm LVPW Diastolic Thickness 1.2 cm 0.6 - 1.0 / 0.6 - 0.9 cm LVPW Systolic Thickness 1.3 cm LVOT Diameter 2.1 cm LV Ejection Fraction 2D Teich 70.6 % LV Ejection Fraction MOD 2C 63.9 % LV Ejection Fraction 2C AL 63.2 % LA Diameter 2.9 cm IVC Diameter 0.9 cm M-MODE Aortic Annulus Diameter 3.1 cm LA Ao Ratio MM 0.9 MV E Point Septal Separation 1.3 cm DOPPLER AV Peak Velocity 106.0 cm/s LVOT Peak Velocity 107.0 cm/s AV Area Cont Eq vti 4.0 cm squared AV Area Cont Eq pk 3.4 cm squared MV Area PHT 3.2 cm squared Mitral E to A Ratio 0.7 MV E' Velocity 36.5 cm/s Mitral E to MV E' Ratio 8.3 Mitral E to LV E' Lateral Ratio 6.9 Mitral E to LV E' Septal Ratio 10.5 TR Peak Velocity 140.0 cm/s TR Peak Gradient 7.8 mmHg RV Acceleration Time 0.1 s FINDINGS Left Ventricle Left ventricle is normal in size. LV systolic function is normal with EF of 55 to 60%. No regional wall motion abnormalities are seen. Grade 1 diastolic dysfunction Right Ventricle Normal in size and function Right Atrium Normal in size Left Atrium Normal in size Mitral Valve Structurally normal mitral valve. Mild mitral regurgitation. Aortic Valve Grossly normal. No significant stenosis or regurgitation. Tricuspid Valve Trace tricuspid regurgitation. Insufficient TR jet to calculate RVSP Pulmonic Valve Not well visualized Pericardium Normal Aorta Normal in size IVC Appears to be normal CONCLUSIONS LV systolic function is normal with EF of 55-60% Grade 1 diastolic dysfunction Mild mitral regurgitation Trace tricuspid regurgitation No comparison studies are available Orlando Lin MD (Electronically Signed) Final Date: 28 August 2023 16:56 S
[2023-08-28 11:35] VITALS: BP 153/89; PULSE 82; RESP 16; TEMP 36.4; O2SAT 95
[2023-08-28] MEDS: nicotine 21 mg Patch 1 PATCH TRANSDERMA (11:52)
[2023-08-28] MEDS: folic acid 1 mg Tablet PO (11:52)
[2023-08-28] MEDS: thiamine 100 mg Tablet PO (11:52)
[2023-08-28] MEDS: aspirin 325 mg Tablet PO (11:52)
[2023-08-28] MEDS: sodium chloride 0.9% 1,000 ML 75 ML IV ×2 (12:04→23:28)
[2023-08-28 16:00] VITALS: BP 147/94; PULSE 81; RESP 17; TEMP 37.1; O2SAT 98
[2023-08-28] MEDS: clindamycin 150 mg Capsule 300 MG PO ×2 (18:06→23:28)
[2023-08-28 19:28] VITALS: BP 154/85; PULSE 86; RESP 18; TEMP 36.7; O2SAT 95
[2023-08-28] MEDS: atorvastatin 40 mg Tablet PO (20:31)
[2023-08-28] MEDS: acetaminophen 325 mg Tablet 650 MG PO (20:31)
[2023-08-29] VITALS (8 sets, daily range): BP systolic 125–250; BP diastolic 77–212; PULSE 77–98; RESP 15–18; TEMP 36.6–37.1; O2SAT 93–96
[2023-08-29 05:32] LABS: Chol HDL Ratio 2.88 mg/dL (0.0-4.40); Cholesterol 216 mg/dL (0-200); HDL Cholesterol 75 mg/dL (60-100); LDL Cholesterol Calculated 121 mg/dL (50-129); LDL HDL Ratio 1.61 RATIO (0.00-3.22); Triglycerides 98 mg/dL (0-150)
[2023-08-29 05:41] LABS: Estmated Average Glucose 108; Hemoglobin A1C 5.4 % (4.0-6.0)
[2023-08-29] MEDS: clindamycin 150 mg Capsule 300 MG PO ×4 (05:50→22:01)
[2023-08-29] MEDS: nicotine 21 mg Patch 1 PATCH TRANSDERMA (08:19)
[2023-08-29] MEDS: LORazepam 0.5 mg Tablet PO ×2 (08:19→15:07)
[2023-08-29] MEDS: thiamine 100 mg Tablet PO (08:20)
[2023-08-29] MEDS: folic acid 1 mg Tablet PO (08:20)
[2023-08-29] MEDS: loratadine 10 mg Tablet PO (08:20)
[2023-08-29] MEDS: clopidogrel 75 mg Tablet PO (08:20)
[2023-08-29] MEDS: aspirin 81 mg EC Tablet PO (08:20)
[2023-08-29] MEDS: fluticasone nasal spray 16gm Btl 2 SPRAY NASAL (08:20)
--- NOTE | 2023-08-29 08:21 | PM.PN ---
Documented by User: Bernadette Clark 08/29/23 08:37 Subjective Subjective: Today, pt reports improvement in muscle strength and sensation in her distal left lower extremity. She is now able to move her toes slightly, but is still having some difficulty with ambulation. Physical therapy has been following her for this. She also reports headaches overnight and this morning, which was treated with tylenol that did not provide significant relief. Mrs. Urrutia says she had difficulty sleeping last night and reported some anxiety this morning. She denies chest pain, shortness of breath, or any abdominal pain. She has no other concerns at this time. Vitals/I&O/Wt Last Vital Signs Temp 98.6 F 08/29/23 05:00 Pulse 80 08/29/23 05:00 Resp 18 08/29/23 05:00 BP 138/80 08/29/23 05:00 Pulse Ox 94 08/29/23 05:00 O2 Del Method Room Air 08/28/23 16:00 08/28/23 08/29/23 08/29/23 22:59 06:59 14:59 Intake Total 360 / 360 1335 / 1695 Output Total 200 / 450 Balance 160 / -90 1335 / 1245 Weight last 48 hrs Weight 48.988 kg Physical Exam Narrative: General: pt is alert, cooperative, in no distress. Neck: supple, no lymphadenopathy, no thyromegaly. Cardiac: normal rate and rhythm, no murmurs appreciated. Respiratory: clear to auscultation bilaterally. Equal chest expansion. Abdomen: normoactive bowel sounds in al 4 quadrants. No abdominal tenderness to palpation. No obvious organomegaly. Extremities: 2+ peripheral pulses in upper and lower extremities. Brisk capillary reflex. Neurologic: CN II-XII intact. Sensation normal in upper extremities, right lower extremity. Improved sensation of distal left lower extremity from yesterday. Normal muscle strength of RIGHT upper and lower extremity. Improved muscle strength in upper LEFT extremity. Pt now has some dorsiflexion of distal left foot and has improvement of muscle strength in left lower extremity. Difficulty with ambulation still present. Data 08/28/23 06:43 08/28/23 06:43 Other Labs: HbA1C 5.4 Cholesterol 216, LDL 121, HDL 75 ECHO showed EF of 55-60%, Grade 1 diastolic dysfunction, mild mitral regurg, trace tricuspid regurg A&P Assessment and plan (1) Cerebrovascular accident: Patient with acute CVA, right MCA territory on exam. Improved movement and sensation on left side from yesterday. CTA of head and neck indicative of complete occlusion of left ICA and mild stenosis of right ICA Continue aspirin, Plavix, and statin for further stroke prevention. CBC, BMP daily. Continue physical therapy for rehab of lower extremity post-CVA. OT and ST Continue IVFs to ensure hydration and as part of stroke treatment plan. Plan to follow-up with neurology in 2 weeks and cardiology in 4-6 weeks for surveillance of carotid artery stenosis. (2) Hypertension: Continue to hold BP medications today to allow for permissive HTN following stroke. Will reassess need to restart medications. Consider treatment if blood pressure greater than 220/120. Pt did have episode of HTN that was treated with Ativan as pt reported significant anxiety. Will continue to monitor for further treatment needs. CMP daily. (3) Nicotine addiction: Pt with significant smoking history. Will provide nicotine patches per pt request while in the hospital. Continue encouragement of smoking cessation as part of stroke preventing. (4) Alcohol abuse: Pt with history of alcohol use. Still without signs of withdrawal at this time. Monitor closely for any alcohol withdrawal. Folate, thiamine supplement PO daily. Plan Anxiety. Ativan as needed Allergies. Claritin and Flonase added. Tooth infection. Continue Clindamycin PO. Multiple other medical close as outlined in past medical history Full code Lovenox for DVT prophylaxis Patient seen with the medical student, in tandem, and this note was created with the student. Coding Level of Care Code 14130 Diagnoses Cerebrovascular accident I63.9 Hypertension I10 Nicotine addiction F17.200 Alcohol abuse F10.10 Time Spent (min) 24 Documented by User: Butch Rivera MD 08/29/23 09:34 Subjective Subjective: Today, pt reports improvement in muscle strength and sensation in her distal left lower extremity. She is now able to move her toes slightly, but is still having some difficulty with ambulation. Physical therapy has been following her for this. She also reports headaches overnight and this morning, which was treated with tylenol that did not provide significant relief. Mrs. Urrutia says she had difficulty sleeping last night and reported some anxiety this morning. She denies chest pain, shortness of breath, or any abdominal pain. She has no other concerns at this time. She would also like some medication for allergies which she thinks is contributing to her headache. Medications: Reviewed: Yes Data 08/28/23 06:43 08/28/23 06:43 A&P Assessment and plan (1) Cerebrovascular accident: Patient with acute CVA, right MCA territory on exam. Improved movement and sensation on left side from yesterday. CTA of head and neck indicative of complete occlusion of left ICA and mild stenosis of right ICA Continue aspirin, Plavix, and statin for further stroke prevention. CBC, BMP daily. Continue physical therapy for rehab of lower extremity post-CVA. OT and ST Continue IVFs to ensure hydration and as part of stroke treatment plan. Plan to follow-up with neurology in 2 weeks and cardiology in 4-6 weeks for surveillance of carotid artery stenosis. Will need event monitor on discharge. (2) Hypertension: (3) Nicotine addiction: (4) Alcohol abuse: Attestations Medical Necessity Statement*: Needs continued hospital stay for close monitoring following stroke with evaluation for physical therapy. Diagnoses Cerebrovascular accident I63.9 Hypertension I10 Nicotine addiction F17.200 Alcohol abuse F10.10 Time Spent (min) 24
--- NOTE | 2023-08-29 10:52 | PC.CHAP ---
Pastoral Care Encounter/Spiritual Assessment Type of Contact [] Declined it program engagement director visit [] Patient/Family/Request visit [] Outpatient visit [] Follow-up visit [] Physician referral [] Code/Alert [x] Routine visit [] Staff referral [] Actively dying [] Patient sleeping [] Family support [] [] Out of room [] Palliative care [] [] Receiving care in room [] Pre-surgical visit [] Trauma [] Long length of stay [] ICU visit [] Other: Relational/Emotional Strength [] Patient feels connected with others/family/visitors/staff [] Distress [] Loneliness/isolation [] Abandonment Spirituality of Patient [] Person of Treva [] Attends Mandaen of their Treva [] Believes in Prayer [] Reads Bible or Orthodox materials [] There are Spiritual issues to be addressed [employer] Interventions [x] Prayer [] Active listening [] Non-anxious presence [] Spiritual/emotional support [] Crisis/trauma care [] Spiritual counseling [] Bereavement support [] Provided bereavement packet [] Provided Bible/devotional materials [] Provided toy/stuffed animal, coloring book to patient or family member [] Provided Communion [] Anointing/[place] [] Salvation [] Completed spiritual assessment [] Other: Impact on Illness or Injury [] Angry [] Fearful [] Anxious [] Often cries [] Exhaustion [] Unable to work [] Unable to attend advent [] Unable to walk/stand [] Unable to read [] Unable to drive [] Unable to eat/drink [] Unable to sleep [] Unable to be with family [] Patient intubated [] Other: Summary Time spent with patient 10 min
[2023-08-29] MEDS: sodium chloride 0.9% 1,000 ML 50 ML IV (12:36)
[2023-08-29] MEDS: atorvastatin 40 mg Tablet PO (20:54)
[2023-08-29] MEDS: trazodone 100 mg Tablet PO (20:54)
[2023-08-30] VITALS (9 sets, daily range): BP systolic 104–155; BP diastolic 69–101; PULSE 82–96; RESP 15–17; TEMP 36.5–36.8; O2SAT 93–96
[2023-08-30 05:16] LABS: Basophils % 0.6 %; Eosinophils # 0.4 10^3/uL (0.0-0.8); Eosinophils % 5.8 %; Hematocrit 44.1 % (36-47); Lymphocytes # 2.2 10^3/uL (0.8-4.8); Lymphocytes % 32.1 %; Mean Corpuscular HGB Conc 33.3 g/dL (30-55); Mean Corpuscular Hemoglobin 30.8 pg (27-33); Mean Corpuscular Volume 92.3 fl (85-98); Mean Platelet Volume 9.1 fL (7.4-10.4); Monocytes # 0.7 10^3/uL (0.2-0.9); Monocytes % 10.5 %; Neutrophils # 3.49 10^3/uL (1.8-7.7); Neutrophils % 50.7 %; Nucleated Red Blood Cells % 0 %; Platelet Count 312 10^3/cmm (157-399); Red Blood Count 4.78 10^6/uL (3.85-5.65); Red Cell Distribution Width 12.5 % (12.1-15.1); White Blood Count 6.88 10^3/uL (3.29-11.43)
[2023-08-30] MEDS: clindamycin 150 mg Capsule 300 MG PO ×4 (05:22→22:25)
[2023-08-30 05:37] LABS: Blood Urea Nitrogen 14 mg/dL (8-23); Calcium 9.5 mg/dL (8.5-10.5); Carbon Dioxide 24 mmol/L (22-29); Chloride 105 mmol/L (98-107); Glomerular Filtration Rate 84.8 mL/min (90-130); Glucose 111 mg/dL (65-115); Osmolality Calculated 289 mOsm/kg (285-295); Sodium 139 mmol/L (136-145)
[2023-08-30] MEDS: aspirin 81 mg EC Tablet PO (09:50)
[2023-08-30] MEDS: clopidogrel 75 mg Tablet PO (09:50)
[2023-08-30] MEDS: loratadine 10 mg Tablet PO (09:50)
[2023-08-30] MEDS: folic acid 1 mg Tablet PO (09:50)
[2023-08-30] MEDS: thiamine 100 mg Tablet PO (09:50)
[2023-08-30] MEDS: nicotine 21 mg Patch 1 PATCH TRANSDERMA (09:50)
[2023-08-30] MEDS: fluticasone nasal spray 16gm Btl 2 SPRAY NASAL (09:52)
[2023-08-30] MEDS: sodium chloride 0.9% 1,000 ML 50 ML IV (09:57)
[2023-08-30] MEDS: LORazepam 0.5 mg Tablet PO ×2 (10:07→20:27)
--- NOTE | 2023-08-30 11:23 | PM.PN ---
Subjective Subjective: Patient work with PT Was not able to sleep well last night We will give 1 more day of physical therapy Plan to discharge her home with home health and outpatient PT referral tomorrow Vitals/I&O/Wt Last Vital Signs Temp 98.1 F 08/30/23 07:59 Pulse 84 08/30/23 07:59 Resp 16 08/30/23 07:59 BP 132/83 08/30/23 07:59 Pulse Ox 93 08/30/23 07:59 O2 Del Method Room Air 08/30/23 03:57 08/29/23 08/30/23 08/30/23 22:59 06:59 14:59 Intake Total 480 / 1907.5 120 / 2027.5 1360 / 1360 Balance 480 / 1437.5 120 / 1557.5 1360 / 1360 Physical Exam Narrative: Hemodynamic stable Awake and alert Left-sided weakness GCS 15 Euvolemic Awake and alert S1, S2 Currently on room air Pleasant and cooperative Data 08/30/23 04:37 08/30/23 04:37 A&P Assessment and plan (1) Cerebrovascular accident: (2) Hypertension: (3) Vitamin D deficiency: (4) Myositis: (5) Chronic fatigue and malaise: Plan No need to repeat labs for tomorrow Continue PT evaluation on daily basis Continue aspirin and atorvastatin Dual antiplatelet therapy Discontinue IV fluids patient is able to eat Plan to discharge her home with PT referral outpatient tomorrow Continue thiamine folic acid Dental infection currently on clindamycin Attestations Medical Necessity Statement*: Discharge tomorrow Diagnoses Cerebrovascular accident I63.9 Hypertension I10 Vitamin D deficiency E55.9 Myositis M60.9 Chronic fatigue and malaise R53.82; R53.81
[2023-08-30] MEDS: acetaminophen 325 mg Tablet 650 MG PO (19:13)
[2023-08-30] MEDS: atorvastatin 40 mg Tablet PO (20:27)
[2023-08-30] MEDS: trazodone 100 mg Tablet PO (20:27)
[2023-08-31 03:59] VITALS: BP 139/89; PULSE 79; RESP 16; TEMP 36.4; O2SAT 95
[2023-08-31] MEDS: clindamycin 150 mg Capsule 300 MG PO (05:03)
[2023-08-31 06:00] VITALS: PULSE 82
[2023-08-31 08:00] VITALS: BP 147/97
[2023-08-31] MEDS: nicotine 21 mg Patch 1 PATCH TRANSDERMA (09:30)
[2023-08-31] MEDS: thiamine 100 mg Tablet PO (09:30)
[2023-08-31] MEDS: clopidogrel 75 mg Tablet PO (09:30)
[2023-08-31] MEDS: folic acid 1 mg Tablet PO (09:30)
[2023-08-31] MEDS: loratadine 10 mg Tablet PO (09:30)
[2023-08-31] MEDS: aspirin 81 mg EC Tablet PO (09:30)
[2023-08-31] MEDS: fluticasone nasal spray 16gm Btl 2 SPRAY NASAL (09:31)
--- NOTE | 2023-08-31 09:59 | P.DS_ITS ---
Discharge Providers Date of Admission: 08/28/23 09:31 Date of Discharge: August 31, 2023 Attending Provider at Admission: Butch Rivera MD Attending Provider at Discharge: Barbra Montoya MD Primary Care Provider: Sergo Aguilar MD Diagnoses at Discharge Discharge Diagnosis (1) Cerebrovascular accident: Status: Acute (2) Hypertension: Status: Acute (3) Vitamin D deficiency: Status: Acute (4) Myositis: Status: Acute (5) Chronic fatigue and malaise: Status: Acute Reason for Visit Reason for Visit: stroke like symptoms Hospital Course Hospital Course 63-year-old female history of alcohol abuse, lives with her , presented with stroke related symptoms including left arm and leg weakness, she was diagnosed with stroke, internal carotid atherosclerotic plaque with occlusion, echo unremarkable, she remained in sinus rhythm, she was given thiamine and folic acid on average she drinks 4-6 beers a day, PT recommended outpatient referral, hospital bed and a wheelchair has been arranged. Physical Exam Narrative: Awake and alert GCS 15 NIH 0 Mild weakness of left leg and left arm Awake and alert Pleasant cooperative Doing well on room air Discharge Data Studies Completed and Pending Completed Studies During Hospitalization Category Date Time Status CT head wo con* [id number] Stat Cat Scan 08/28/23 06:33 Completed CTA head neck [CT angio headneck* [id number]/[id number]] Stat Cat Scan 08/28/23 06:45 Completed XR chest 1V portable [id number] Routine Exams 08/28/23 09:50 Completed CV. echo complete* [id number] Routine Ultrasound 08/28/23 10:40 Completed Radiology Impressions Head CT 08/28/23 06:33 IMPRESSION: 1. 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 If acute infarction is strongly suspected, consider correlation with MRI, if clinically indicated. 2. No acute intracranial findings. 3. Mild cerebral small-vessel disease. ASSESSMENT: ASPECTS ([place] Stroke Program Early CT Score) is 10. Head/Neck CTA 08/28/23 06:45 IMPRESSION: 1. Occlusion of the proximal petrous segment of the left internal carotid artery with moderate to severe stenosis of the remainder of the left internal carotid artery. 2. Otherwise patent [id number]. IMPRESSION: 1. Complete occlusion the proximal left internal carotid artery with severe stenosis of the remainder of the cervical segment. 2. Mild stenosis of the proximal right internal carotid artery. REFERENCES: NASCET CRITERIA. The degree of stenosis in the cervical segment of the internal carotid artery is based on NASCET criteria. Normal is no stenosis. Mild is less than 50% stenosis. Moderate is 50-69% stenosis. Severe is 70% to 99% stenosis. Total occlusion is no detectable patent lumen. ADDENDUM: 08/28/23 0757 THIS REPORT CONTAINS FINDINGS THAT MAY BE CRITICAL TO PATIENT CARE. The findings were verbally communicated via telephone conference with BOSTON MARQUIS at 7:55 AM CDT on 08/28/2023. The findings were acknowledged and understood. Laboratory Results WBC 6.88 10^3/uL (3.29-11.43) 08/30/23 04:37 RBC 4.78 10^6/uL (3.85-5.65) 08/30/23 04:37 Hgb 14.70 g/dL (11.27-16.99) 08/30/23 04:37 Hct 44.1 % (36-47) 08/30/23 04:37 MCV 92.3 fl (85-98) 08/30/23 04:37 MCH 30.8 pg (27-33) 08/30/23 04:37 MCHC 33.3 g/dL (30-55) 08/30/23 04:37 RDW 12.5 % (12.1-15.1) 08/30/23 04:37 Plt Count 312 10^3/cmm (157-399) 08/30/23 04:37 MPV 9.1 fL (7.4-10.4) 08/30/23 04:37 Neut % (Auto) 50.7 % 08/30/23 04:37 Lymph % (Auto) 32.1 % 08/30/23 04:37 [place] % (Auto) 10.5 % 08/30/23 04:37 Eos % (Auto) 5.8 % 08/30/23 04:37 Baso % (Auto) 0.6 % 08/30/23 04:37 Neut # (Auto) 3.49 10^3/uL (1.8-7.7) 08/30/23 04:37 Lymph # (Auto) 2.2 10^3/uL (0.8-4.8) 08/30/23 04:37 [place]ancock # (Auto) 0.7 10^3/uL (0.2-0.9) 08/30/23 04:37 Eos # (Auto) 0.4 10^3/uL (0.0-0.8) 08/30/23 04:37 Baso # (Auto) 0.0 10^3/uL (0.0-0.1) 08/30/23 04:37 Nucleated RBC % (auto) 0 % 08/30/23 04:37 Nucleated RBCs # 0.0 /100WBC 08/30/23 04:37 PT 12.00 SECONDS (12.1-14.9) L 08/28/23 06:43 INR 0.86 (0.8-1.2) 08/28/23 06:43 APTT 29.4 SECONDS (23.9-36.7) 08/28/23 06:43 Sodium 139 mmol/L (136-145) 08/30/23 04:37 Potassium 4.0 mmol/L (3.5-5.1) 08/30/23 04:37 Chloride 105 mmol/L (98-107) 08/30/23 04:37 Carbon Dioxide 24 mmol/L (22-29) 08/30/23 04:37 Anion Gap 14.0 (5-19) 08/30/23 04:37 BUN 14 mg/dL (8-23) 08/30/23 04:37 Creatinine 0.7 mg/dL (0.5-0.9) 08/30/23 04:37 GFR Calculation 84.8 mL/min (90-130) L 08/30/23 04:37 Glucose 111 mg/dL (65-115) 08/30/23 04:37 POC Glucose 94 mg/dL (70-110) 08/28/23 06:41 Estimat Average Glucose 108 08/29/23 04:36 Hemoglobin A1c 5.4 % (4.0-6.0) 08/29/23 04:36 Calculated Osmolality 289 mOsm/kg (285-295) 08/30/23 04:37 Calcium 9.5 mg/dL (8.5-10.5) 08/30/23 04:37 Total Bilirubin 0.2 mg/dL (0.15-1.2) 08/28/23 06:43 AST 21 U/L (0-32) 08/28/23 06:43 ALT 18 U/L (0-33) 08/28/23 06:43 Alkaline Phosphatase 84 U/L (35-105) 08/28/23 06:43 Total Protein 7.0 g/dL (6.6-8.7) 08/28/23 06:43 Albumin 4.5 g/dL (3.5-5.2) 08/28/23 06:43 Globulin 2.5 g/dL (1.3-4.6) 08/28/23 06:43 Triglycerides 98 mg/dL (0-150) 08/29/23 04:36 Cholesterol 216 mg/dL (0-200) H 08/29/23 04:36 LDL Cholesterol, Calc 121 mg/dL (50-129) 08/29/23 04:36 HDL Cholesterol 75 mg/dL (60-100) 08/29/23 04:36 LDL/HDL Ratio 1.61 RATIO (0.00-3.22) 08/29/23 04:36 Cholesterol/HDL Ratio 2.88 mg/dL (0.0-4.40) 08/29/23 04:36 Urine Color Yellow (Yellow) 08/28/23 06:49 Urine Appearance Clear (CLEAR) 08/28/23 06:49 Urine pH 6 (5-7) 08/28/23 06:49 Ur Specific [place] 1.010 (1.005-1.030) 08/28/23 06:49 Urine Protein Neg (Negative) 08/28/23 06:49 Urine Glucose (UA) Norm (Normal) 08/28/23 06:49 Urine Ketones Negative (Negative) 08/28/23 06:49 Urine Blood Neg (Negative) 08/28/23 06:49 Urine Nitrate Negative (Negative) 08/28/23 06:49 Urine Bilirubin Neg (Negative) 08/28/23 06:49 Urine Urobilinogen Norm mg/dL (Negative) 08/28/23 06:49 Ur Leukocyte Esterase Negative (Negative) 08/28/23 06:49 Urine Opiates Screen Negative ng/mL (Negative) 08/28/23 06:49 Ur Barbiturates Screen Negative ng/mL (Negative) 08/28/23 06:49 Ur Phencyclidine Scrn Negative ng/mL (Negative) 08/28/23 06:49 Ur Amphetamines Screen Negative ng/mL (Negative) 08/28/23 06:49 U Benzodiazepines Scrn Positive ng/mL (Negative) H 08/28/23 06:49 Urine Cocaine Screen Negative ng/mL (Negative) 08/28/23 06:49 U Marijuana (THC) Screen Positive ng/mL (Negative) H 08/28/23 06:49 Ethyl Alcohol < 10 mg/dL (0-10) 08/28/23 06:43 Vitals Last Vital Signs Temp 97.5 F L 08/31/23 03:59 Pulse 82 08/31/23 06:00 Resp 16 08/31/23 03:59 BP 147/97 08/31/23 08:00 Pulse Ox 95 08/31/23 03:59 O2 Del Method Room Air 08/31/23 03:59 Discharge Plan Discharge Patient Disposition: Home Condition: Stable Prescriptions: New clopidogrel 75 mg Tablet 75 mg PO DAILY Qty: 20 0RF clindamycin HCl 150 mg Capsule 300 mg PO Q6H Qty: 16 0RF atorvastatin 40 mg Tablet 40 mg PO BEDTIME Qty: 60 3RF folic acid 1 mg Tablet 1 mg PO DAILY Qty: 30 0RF thiamine mononitrate (vit B1) [Vitamin B-1 (mononitrate)] 100 mg Tablet 100 mg PO DAILY Qty: 30 0RF Continued trazodone 50 mg tablet 100 mg PO BEDTIME PRN (Reason: Sleep) Qty: 60 1RF Rx Instructions: 1 or 2 tab at bed time diazepam 5 mg tablet 5 mg PO TID PRN (Reason: muscle spasm) 15 Days Qty: 45 0RF albuterol sulfate 90 mcg/actuation HFA aerosol inhaler 2 puff inhalation Q6H PRN (Reason: shortness of breath or wheezing) Qty: 8.5 5RF multivitamin Tablet 1 tab PO DAILY Tylenol Sinus Congestion Pain 2-5-325 mg Tablet 1 - 2 tab PO DAILY PRN (Reason: Sinus Symptoms) Blood Builder 1 cap PO DAILY amlodipine 5 mg tablet 5 mg PO DAILY Qty: 30 0RF lisinopril 10 mg tablet 10 mg PO DAILY Qty: 30 0RF aspirin 81 mg Tablet,Delayed Release (Dr/Ec) 81 mg PO QAM Qty: 90 3RF Discharge Orders: Discharge Order (Routine); Ordered 08/31/23 Ordered By: Barbra Montoya Other Ambulatory Orders: DME: Hospital Bed (Order) Location: None Selected Ordered By: Barbra Montoya DME: Wheelchair (Order) Location: None Selected Ordered By: Barbra Montoya Referrals: Sergo Aguilar MD [Primary Care Provider] - 09/11/23 11:00 am () Patient Instructions: Opioid Safety Discharge Attestations Time Spent in Discharge Care*: greater than 30 min Quality Metrics Clinical Quality Measures [ No reported AMI, CVA or VTE this stay] Coding Level of Care Code Acute Code for Chg Fwd Diagnoses Cerebrovascular accident I63.9 Hypertension I10 Vitamin D deficiency E55.9 Myositis M60.9 Chronic fatigue and malaise R53.82; R53.81
== END 2023-08-31 12:00 | disposition home or self-care (01) | DRG 66 ==
LOC: ER 08:01 → MEDSURG 09:32
PROVIDERS: Admitting Provider Internal Medicine; Emergency Provider Family Medicine; PCP Family Medicine; Visit Provider Internal Medicine
DX: I63.132 Cerebral infarction due to embolism of left carotid artery (principal); R29.700 NIHSS score 0; I10 Essential (primary) hypertension; E55.9 Vitamin D deficiency, unspecified; M60.9 Myositis, unspecified; F10.10 Alcohol abuse, uncomplicated; Z79.891 Long term (current) use of opiate analgesic; Z79.82 Long term (current) use of aspirin; F17.210 Nicotine dependence, cigarettes, uncomplicated; F41.9 Anxiety disorder, unspecified; R53.82 Chronic fatigue, unspecified
CPT/HCPCS: 36415; 36416; 70450; 70496; 70498; 71045; 80048; 80053; 80061; 80306; 80307; 81003; 82962; 83036; 85025; 85610; 85730; 92507; 92523; 92610; 93005; 93306; 96360; 96361; 97110; 97116; 97162; 97165; 97530; 99285; J7030; Q9967

== ENCOUNTER 2023-09-12 09:12 | Outpatient (RCR) | payer OTHER, SELFPAY | END 2023-10-04 23:59 | disposition home or self-care (01) | LOC: SPT 09:12 | PROVIDERS: PCP Family Medicine; Visit Provider Internal Medicine | DX: I63.9 Cerebral infarction, unspecified (principal); R53.82 Chronic fatigue, unspecified; R53.81 Other malaise | CPT/HCPCS: 97110; 97162; 97530 ==

== ENCOUNTER 2023-09-24 12:51 | Outpatient (CLI) | payer OTHER, SELFPAY ==
--- NOTE | 2023-09-24 13:45 | USCV_ITS ---
Marisol Urrutia Age: 63 Gender: F : 1960 Exam Date: 09/24/2023 13:37 Ordering Phys: Sergo Aguilar MD Technologist: CRISTINA Exam Location: [facility] [place] Indication: Stenosis Risk Factors: Previous Vascular Surgery: Right Brachial BP: / Left Brachial BP: / Right Left Velocity (cm/s) Spectral Plaque Velocity (cm/s) Spectral Plaque Syst/Diast Broadening Syst/Diast Broadening 70.60/ 25.40 Prox CCA 61.80 / 17.30 62.80/ 20.90 Mid CCA 49.00 / 15.10 57.30/ 17.60 Distal CCA 33.20 / 6.80 50.50/ 21.00 Prox ICA 77.70 / 15.80 79.20/ 37.30 Mid ICA 74.70 / 15.80 84.70/ 31.10 Distal ICA / 52.00 ECA 61.80 1.20 ICA/CCA 1.26 Antegrade Vertebral Antegrade 76.90/ 21.00 cm/s 57.30/ 13.60 cm/s Tri Subclavian Tri 154.9 133.1 0 0 FINDINGS Comparison: none available. No significant elevation of systolic or diastolic velocities. Waveforms are normal. No significant amount of calcified plaque or intimal thickening identified. CONCLUSIONS Normal carotid doppler ultrasound. Dr. Esthela iDana DO (Electronically Signed) Final Date: 24 September 2023 15:14 S
== END 2023-09-24 12:52 | disposition home or self-care (01) ==
LOC: RAD 12:51
PROVIDERS: PCP Family Medicine; Visit Provider Family Medicine
DX: I63.9 Cerebral infarction, unspecified (principal); I65.29 Occlusion and stenosis of unspecified carotid artery
CPT/HCPCS: 93880

== ENCOUNTER 2023-10-11 12:46 | Outpatient (RCR) | payer OTHER, SELFPAY | END 2023-11-04 23:59 | disposition home or self-care (01) | LOC: SPT 12:46 | PROVIDERS: PCP Family Medicine; Visit Provider Internal Medicine | DX: I63.9 Cerebral infarction, unspecified (principal); R53.1 Weakness; R26.0 Ataxic gait | CPT/HCPCS: 97110; 97530 ==

== ENCOUNTER → 2023-10-11 14:21 | Outpatient (BNVA) | payer OTHER, SELFPAY | PROVIDERS: PCP Family Medicine; Visit Provider Psychiatry & Neurology Neurology | DX: I63.9 Cerebral infarction, unspecified (principal); Z82.3 Family history of stroke; Z82.49 Family history of ischemic heart disease and other diseases of the circulatory system | CPT/HCPCS: 36415; 81241; 83090; 85210; 85613; 85730; 86146; 86147 ==

== ENCOUNTER 2023-11-05 06:00 | Outpatient (RCR) | payer OTHER, SELFPAY | END 2023-12-05 23:59 | disposition home or self-care (01) | LOC: SPT 06:00 | PROVIDERS: PCP Family Medicine; Visit Provider Internal Medicine | DX: I63.9 Cerebral infarction, unspecified (principal); R53.1 Weakness; R26.0 Ataxic gait | CPT/HCPCS: 97110; 97530 ==

== ENCOUNTER 2023-12-06 06:00 | Outpatient (RCR) | payer OTHER, SELFPAY | END 2023-12-21 23:59 | disposition home or self-care (01) | LOC: SPT 06:00 | PROVIDERS: PCP Family Medicine; Visit Provider Internal Medicine | DX: I63.9 Cerebral infarction, unspecified (principal); R53.1 Weakness; R26.0 Ataxic gait | CPT/HCPCS: 97110; 97530 ==

== ENCOUNTER 2024-03-10 12:21 | Outpatient (CLI) | payer OTHER, SELFPAY ==
--- NOTE | 2024-03-10 12:30 | USCV_ITS ---
Marisol Urrutia Age: 64 Gender: F : 1960 Exam Date: 03/10/2024 12:38 Ordering Phys: Toby Cabezas MD (Andy) ([email or web address] [place] Technologist: Exam Location: [facility] [place] Indication: cca disease Risk Factors: Previous Vascular Surgery: Right Brachial BP: / Left Brachial BP: / Right Left Velocity (cm/s) Spectral Plaque Velocity (cm/s) Spectral Plaque Syst/Diast Broadening Syst/Diast Broadening 62.10/ 20.60 Prox CCA 48.20 / 13.40 69.80/ 23.20 Hetro Mid CCA 39.80 / 11.50 63.40/ 19.30 Hetro Distal CCA 29.50 / 14.00 Hetro 60.40/ 25.60 Hetro Prox ICA / Junior 77.20/ 35.90 Hetro Mid ICA / Junior 82.30/ 39.80 Distal ICA / 88.00 ECA 52.60 1.30 ICA/CCA Antegrade Vertebral Antegrade 61.00/ 25.00 cm/s 52.00/ 14.00 cm/s Tri Subclavian Tri 55.00 100.0 0 FINDINGS Comparison:. 09/24/23, CTA 08/28/23 Diffuse bilateral scattered calcified plaque and intimal thickening throughout the common carotid arteries and extending through the bifurcation. Complete known occlusion left ICA. This occlusion was present on the prior exam also but not seen due to poor imaging technique by ultrasound. CONCLUSIONS Known occluded left ICA. Extensive bilateral carotid plaque. Right ICA stenosis < 50%. Dr. Esthela Diana DO (Electronically Signed) Final Date: 10 Mar 2024 15:16 S
== END 2024-03-10 12:22 | disposition home or self-care (01) ==
LOC: RAD 12:21
PROVIDERS: PCP Family Medicine; Visit Provider Thoracic Surgery (Cardiothoracic Vascular Surgery)
DX: I65.23 Occlusion and stenosis of bilateral carotid arteries (principal)
CPT/HCPCS: 93880

== ENCOUNTER 2024-03-12 12:45 | Inpatient (IN) | payer OTHER, SELFPAY ==
[2024-03-12] VITALS (18 sets, daily range): BP systolic 103–185; BP diastolic 67–101; PULSE 94–105; RESP 11–19; TEMP 36.4–37.2; O2SAT 91–97; BMI 20.3
--- NOTE | 2024-03-12 | XR_ITS ---
WS: [email or web address] Left hip, C-arm fluoroscopy views, 03/12/2024 Clinical Data: BRIDGER PICS Comparison: Left hip, 03/12/2024 Findings: Dr. Lund repaired the intertrochanteric fracture of the left hip with a left hip nail and intra troc hanteric farzana. XR/XR hip LT 2-3V wo/w pel* [id number] Impression: Repair of left hip intertrochanteric fracture.
--- NOTE | 2024-03-12 12:50 | XR_ITS ---
WS: [email or web address] Left hip, 3 views, 03/12/2024 Clinical Data: fall Comparison: None. Findings: There is a comminuted intertrochanteric fracture of the left hip. The left femoral head remains withi n the acetabulum. The adjacent pelvis shows no abnormalities. XR/XR hip LT 2-3V wo/w pel* [id number] Impression: Comminuted intertrochanteric fracture of the left hip.
--- NOTE | 2024-03-12 12:50 | XR_ITS ---
WS: [email or web address] Portable AP semiupright chest, 03/12/2024 Clinical Data: fall Comparison: Portable chest, 08/28/2023 Findings: No nodules, masses or effusions are seen. The heart is normal. The pulmonary vascularity is not increased. No pneumonia or pneumothorax is seen. The diaphragms are flattened. The aortic arch s hows mild calcification. XR/XR chest 1V portable [id number] Impression: Atherosclerosis and hyperinflation.
--- NOTE | 2024-03-12 12:51 | W.ED.FALL ---
HPI - Fall General: Chief Complaint: Extremity Injury, Lower Stated Complaint: fall Time Seen by Provider: 03/12/24 12:47 Source: patient and EMS Mode of arrival: EMS Limitations: no limitations History of Present Illness: 64-year-old female states she had a fall last night around midnight she fell on her left hip having severe left hip pain since then she states her helped her up on the couch but she has not been able to bear any weight rates her pain an 8 out of 10 currently denies any other injuries with the fall Associated symptoms-after fall: Denies abdominal pain, chest pain, headache(s) or neck pain Review of Systems Const: Denies: fever(s), chills, body aches or change in appetite Eyes: Denies: blurry vision or eye discomfort Card: Denies: chest pain Resp: Denies: dyspnea GI: Denies: abdominal pain, nausea, vomiting or diarrhea Musc: Reports: extremity pain; Denies: neck pain or back pain Skin/Breast: Denies: rash Neuro: Denies: headache(s) PFSH ED PFSH: Medical History Insomnia Hypertension Alcohol abuse Nicotine addiction Closed fracture of distal ends of right radius and ulna Surgical History Hx of tonsillectomy H/O section Family History Father Stroke Other CAD (coronary artery disease) Cancer Denies family history of Hypertension Social History Smoking and tobacco/nicotine status: former use of tobacco/nicotine Quit status (tobacco/nicotine): has quit using Year quit tobacco: 08/27/23 Alcohol intake: current Substance/Drug Use: never Physical Exam Const: COMMON NORMALS: no acute distress, patient oriented x3 and healthy appearing HENMT: COMMON NORMALS: normocephalic and atraumatic HEAD & SCALP: normocephalic and atraumatic Neck/C-Spine: COMMON NORMALS: full ROM and supple Chest: COMMONS NORMALS: normal inspection of the chest Resp: COMMON NORMALS: normal respiratory effort Cardio: COMMON NORMALS: regular rate, regular rhythm and No murmurs present (Cardio) RATE: regular rate RHYTHM: regular rhythm Extremity: NARRATIVE EXTREMITY EXAM: Tenderness obvious deformity left hip distal pulses intact Neuro: COMMON NORMALS: patient oriented x3, moves all extremities and no focal motor deficits Psych: COMMON NORMALS: mental status grossly normal, Normal thought process present and cooperative THOUGHT PROCESS: Normal thought process present Skin: COMMON NORMALS: no rashes or lesions noted and no wounds GENERAL SKIN EXAM: no rashes or lesions noted Course Vital Signs: Vital signs: Vital Signs Temperature 98.3 F 03/12/24 12:53 Pulse Rate 98 03/12/24 12:53 Respiratory Rate 16 03/12/24 12:53 Blood Pressure 143/99 03/12/24 12:53 Pulse Oximetry 92 03/12/24 12:53 Oxygen Delivery Me thod Room Air 03/12/24 12:53 MDM - Fall Medical Decision Making Patient presents here with a left hip fracture from a fall no other injuries noted I spoke to hospital orthopedist and will admit. Medical Records I reviewed the patient's medical records. Lab Data I reviewed the patient's lab results. All radiology interpretation(s) finalized by discharge EKG Data EKG 1: I personally reviewed and interpreted this EKG as follows: EKG interpretation date: 03/12/24 EKG interpretation time: 13:10 Interpretation: nsr hr [address] or t wave abnormalities qrs 82 qtc 413 Discharge Plan Discharge Patient Disposition: Admitted As Inpatient Clinical Impression: Closed fracture of left hip Condition: Stable Prescriptions: No Action thiamine HCl (vitamin B1) 100 mg tablet 100 mg PO DAILY Qty: 90 2RF diazepam 5 mg tablet 5 mg PO BID PRN (Reason: muscle spasm) 15 Days Qty: 60 2RF aspirin 81 mg tablet,delayed release (DR/EC) 81 mg PO QAM Qty: 90 3RF clopidogrel 75 mg tablet 75 mg PO DAILY Qty: 90 3RF atorvastatin 40 mg tablet 40 mg PO BEDTIME Qty: 90 3RF albuterol sulfate 90 mcg/actuation HFA aerosol inhaler 2 puff inhalation Q6H PRN (Reason: shortness of breath or wheezing) Qty: 8.5 5RF amlodipine 5 mg tablet 5 mg PO DAILY Qty: 90 3RF trazodone 50 mg tablet See Rx Instructions .ROUTE .COMPLEX Qty: 60 3RF Dose Instruction: TAKE 1-2 TABLETS BY MOUTH AT BEDTIME NEEDED FOR SLEEP Rx Instructions: TAKE 1-2 TABLETS BY MOUTH AT BEDTIME NEEDED FOR SLEEP diclofenac sodium 75 mg tablet,delayed release (DR/EC) 75 mg PO BID PRN (Reason: pain) Qty: 60 3RF Rx Instructions: instead of the celebrex for arthritic pain multivitamin Tablet 1 tab PO DAILY Blood Builder 1 cap PO DAILY Referrals: Sergo Aguilar MD [Primary Care Provider] - Coding Level of Care Code ED 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
--- NOTE | 2024-03-12 13:10 | ECG_ITS ---
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 Measurements Intervals [place]ell Rate: 97 P: 77 SC: 146 QRS: 68 QRSD: 82 T: 78 QT: 358 QTc: 456 Interpretive Statements SINUS RHYTHM SEPTAL MYOCARDIAL INFARCTION , OF INDETERMINATE AGE [40+ ms Q WAVE IN V1/V2] Compared to ECG 08/28/2023 06:42:55 Myocardial infarct finding now present Electronically Signed On 03-12-2024 20:02:24 CDT by Salazar Powell M.D. [id number]
[2024-03-12 13:16] LABS: Basophils # 0.1 10^3/uL (0.0-0.1); Basophils % 0.4 %; Eosinophils % 0.1 %; Hematocrit 35.8 % (36-47); Lymphocytes # 1.5 10^3/uL (0.8-4.8); Lymphocytes % 10.7 %; Mean Corpuscular HGB Conc 34.9 g/dL (30-55); Mean Corpuscular Hemoglobin 30.9 pg (27-33); Mean Corpuscular Volume 88.4 fl (85-98); Monocytes # 0.8 10^3/uL (0.2-0.9); Monocytes % 5.7 %; Neutrophils # 11.24 10^3/uL (1.8-7.7); Neutrophils % 82.7 %; Nucleated Red Blood Cells % 0 %; Platelet Count 370 10^3/cmm (157-399); Red Blood Count 4.05 10^6/uL (3.85-5.65); Red Cell Distribution Width 12.5 % (12.1-15.1); White Blood Count 13.59 10^3/uL (3.29-11.43)
--- NOTE | 2024-03-12 13:18 | P.HP_ITS ---
Providers/Chief Complaint 2 Primary Care Provider: Sergo Aguilar MD Chief Complaint: fall History of Present Illness Marisol Urrutia is a 64 year old female with a past medical history of hypertension, alcohol abuse, smoker presented to the hospital with a mechanical fall. 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 She says she has had balance issues ever since her stroke in last August. She did not hit her head. However says she fell on her left side. Says she recently had an ultrasound of her carotids 2 days ago and was supposed to follow-up with cardiology tomorrow. Denies nausea vomiting diarrhea constipation, abdominal pain, chest pain, shortness of breath at this time. Says her hip hurts. Patient seen in preop holding area prior to surgery. ED course: 143/99, 16, 98, 91 room air, 98.3. Does have a left intertrochanteric hip fracture. Discussed with orthopedic surgery and patient will be going to surgery with Dr. Lund shortly. Medications/Allergies Home Medications Medication Instructions Recorded Confirmed Last Taken Type albuterol sulfate 90 mcg/actuation 2 puff inhalation Q6H PRN 05/20/23 03/12/24 Unknown Rx aerosol inhaler shortness of breath or wheezing #8.5 grams multivitamin 1 tab PO DAILY 08/11/23 03/12/24 03/11/24 History aspirin 81 mg tablet,delayed 81 mg PO QAM #90 tabs 09/13/23 03/12/24 03/12/24 Rx release atorvastatin 40 mg tablet 40 mg PO BEDTIME #90 tabs 09/13/23 03/12/24 03/11/24 Rx clopidogrel 75 mg tablet 75 mg PO DAILY #90 tabs 09/13/23 03/12/24 03/12/24 Rx thiamine HCl (vitamin B1) 100 mg 100 mg PO DAILY #90 tabs 10/11/23 03/12/24 03/11/24 Rx tablet amlodipine 5 mg tablet 5 mg PO DAILY #90 tabs 10/15/23 03/12/24 03/12/24 Rx diazepam 5 mg tablet 5 mg PO BID PRN muscle spasm 15 01/16/24 03/12/24 Unknown Rx days #60 tabs diclofenac sodium 75 mg 75 mg PO BID PRN pain #60 tabs 01/23/24 03/12/24 Unknown Rx tablet,delayed release trazodone 50 mg tablet 50 - 100 mg PO BEDTIME PRN Sleep 03/12/24 03/12/24 Unknown History Allergies Allergy/AdvReac Type Severity Reaction Status Date / Time codeine Allergy itchy Verified 01/16/24 11:59 Penicillins AdvReac yeast Verified 01/16/24 11:59 infections PFSH Acute 2 PFSH: Medical History Insomnia Hypertension Alcohol abuse Nicotine addiction Closed fracture of distal ends of right radius and ulna Surgical History Hx of tonsillectomy H/O section Family History Father Stroke Other CAD (coronary artery disease) Cancer Denies family history of Hypertension Social History Smoking and tobacco/nicotine status: former use of tobacco/nicotine Quit status (tobacco/nicotine): has quit using Year quit tobacco: 08/27/23 Alcohol intake: current Substance/Drug Use: never Vitals/I&O/Wt Last Vital Signs Temp 98.3 F 03/12/24 12:53 Pulse 98 03/12/24 12:53 Resp 16 03/12/24 12:53 BP 143/99 03/12/24 12:53 Pulse Ox 92 03/12/24 12:53 O2 Del Method Room Air 03/12/24 12:53 Weight last 48 hrs Weight 52.163 kg Physical Exam 2 Narrative: General: Alert oriented x3, patient seen laying in bed in preop holding area HEENT: Normocephalic, atraumatic, EOMI, on 2 L nasal cannula. Cardio: Regular rate rhythm, normal S1-S2 Respiratory: Clear to auscultation bilaterally GI: Abdomen soft, nontender, bowel sounds + Extremities: Left leg/hip not examined. Patient going to surgery in the next 15 minutes. Data 03/13/24 05:39 03/13/24 05:39 A&P Assessment and plan (1) Hypertension: (2) Closed fracture of left hip: Qualifiers: Encounter type: initial encounter Qualified Code(s): S72.002A - Fracture of unspecified part of neck of left femur, initial encounter for closed fracture (3) Chronic fatigue and malaise: (4) History of stroke: Plan #Left hip fracture #Hypertension #History of alcohol abuse #History of stroke ? Hold Plavix at this time. Continue aspirin. ? Hold amlodipine. ? Confirm all home medication and restart. ? I would hold Valium today. ? Restart tomorrow. ? Continue aspirin, Plavix, amlodipine, atorvastatin, thiamine in AM. ? DuoNeb every 6 hours as needed ? DVT prophylaxis heparin SQ twice daily Full code Attestations 2 Medical Necessity Statement*: Greater than 2 midnight stay for management of hip fracture. Diagnoses Hypertension I10 Closed fracture of left hip, initial encounter S72.002A Encounter type: initial encounter Chronic fatigue and malaise R53.82; R53.81 History of stroke Z86.73
[2024-03-12 13:31] LABS: INR 0.94 (0.8-1.2)
[2024-03-12] MEDS: morphine 4 mg/mL SDV 1 mL IVP (13:31)
[2024-03-12] MEDS: pantoprazole 40 mg SDV IVP (13:32)
[2024-03-12] MEDS: sodium chloride 0.9% 1,000 ML 100 ML IV ×2 (13:37→18:11)
[2024-03-12 13:42] LABS: Alanine Aminotransferase 22 U/L (0-33); Albumin Level 4.2 g/dL (3.5-5.2); Alkaline Phosphatase 81 U/L (35-105); Anion Gap 18.7 (5-19); Aspartate Amino Transferase 27 U/L (0-32); Blood Urea Nitrogen 9 mg/dL (8-23); Calcium 9.4 mg/dL (8.5-10.5); Carbon Dioxide 24 mmol/L (22-29); Chloride 92 mmol/L (98-107); Creatinine Clr Calc Pharmacy 67.9241; Globulin 2.8 g/dL (1.3-4.6); Glomerular Filtration Rate 84.5 mL/min (90-130); Glucose 101 mg/dL (65-115); Osmolality Calculated 269 mOsm/kg (285-295); Potassium 4.7 mmol/L (3.5-5.1); Sodium 130 mmol/L (136-145); Total Bilirubin 0.4 mg/dL (0.15-1.2)
[2024-03-12 13:46] LABS: Lactic Sepsis W/Reflex 1.4 mmol/L (0.5-2.2)
--- NOTE | 2024-03-12 14:11 | P.ANESASSM_ITS ---
Pre-Anesthetic Assessment Height/Weight: Height 1.6 m Weight 52.163 kg Temp Pulse Resp BP Pulse Ox O2 Del Method 98.3 F 96 16 175/100 97 Room Air 03/12/24 13:52 03/12/24 13:52 03/12/24 13:52 03/12/24 13:52 03/12/24 13:52 03/12/24 13:35 Operation Date: 03/12/24 17:20 Proposed Procedures p Trochanteric Femoral Nail(Left) - Leonid H Ashely, DO Familial anesthetic complications: None Was Beta Hal taken within 24 hours: N/A Was Clonidine taken within 24 hours: N/A Last intake: > 8 hrs Social Alcohol and Tobacco Exam alert, oriented x 3, clear to auscultation bilaterally and regular rate & rhythm Airway Mallampati: Class II Dentition: full CV/HEM Hypertension Neuropsych carotid artery stenosis w/ prior CVA Anesthetic Plan ASA status: 3 Anesthesia: General Risk of > 500 ml blood loss (7ml/kg in children): No Medications/Allergies Home Medications Medication Instructions Recorded Confirmed Last Taken Type albuterol sulfate 90 mcg/actuation 2 puff inhalation Q6H PRN 05/20/23 03/12/24 Unknown Rx aerosol inhaler shortness of breath or wheezing #8.5 grams multivitamin 1 tab PO DAILY 08/11/23 03/12/24 03/11/24 History aspirin 81 mg tablet,delayed 81 mg PO QAM #90 tabs 09/13/23 03/12/24 03/12/24 Rx release atorvastatin 40 mg tablet 40 mg PO BEDTIME #90 tabs 09/13/23 03/12/24 03/11/24 Rx clopidogrel 75 mg tablet 75 mg PO DAILY #90 tabs 09/13/23 03/12/24 03/12/24 Rx thiamine HCl (vitamin B1) 100 mg 100 mg PO DAILY #90 tabs 10/11/23 03/12/24 03/11/24 Rx tablet amlodipine 5 mg tablet 5 mg PO DAILY #90 tabs 10/15/23 03/12/24 03/12/24 Rx diazepam 5 mg tablet 5 mg PO BID PRN muscle spasm 15 01/16/24 03/12/24 Unknown Rx days #60 tabs diclofenac sodium 75 mg 75 mg PO BID PRN pain #60 tabs 01/23/24 03/12/24 Unknown Rx tablet,delayed release trazodone 50 mg tablet 50 - 100 mg PO BEDTIME PRN Sleep 03/12/24 03/12/24 Unknown History Allergies Allergy/AdvReac Type Severity Reaction Status Date / Time codeine Allergy itchy Verified 01/16/24 11:59 Penicillins AdvReac yeast Verified 01/16/24 11:59 infections Current Medications Generic Name Dose Route Start Last Admin Trade Name Freq PRN Reason Stop Dose Admin Sodium Chloride 1,000 mls @ 100 mls/hr 03/12/24 13:30 03/12/24 13:37 Sodium Chloride 0.9% IV 100 mls/hr .Q10H PATSY Administration Morphine Sulfate 4 mg 03/12/24 13:18 03/12/24 13:31 Morphine 4 Mg/Ml Sdv 1 Ml IVP 4 mg Q4H PRN Administration SEVERE PAIN Pantoprazole Sodium 40 mg 03/12/24 13:30 03/12/24 13:32 Pantoprazole 40 Mg Sdv IVP 40 mg Q24H PATSY Administration PFSH Anesthesia Medical History Insomnia Hypertension Alcohol abuse Nicotine addiction Closed fracture of distal ends of right radius and ulna Surgical History Hx of tonsillectomy H/O section Family History Father Stroke Other CAD (coronary artery disease) Cancer Denies family history of Hypertension Social History Smoking and tobacco/nicotine status: former use of tobacco/nicotine Quit status (tobacco/nicotine): has quit using Year quit tobacco: 08/27/23 Alcohol intake: current Substance/Drug Use: never Data Anesthesia 03/12/24 13:01 03/12/24 13:01 Short CBC 03/12/24 Range/Units 13:01 WBC 13.59 H (3.29-11.43) 10^3/uL Hgb 12.50 (11.27-16.99) g/dL Hct 35.8 L (36-47) % MCV 88.4 (85-98) fl Plt Count 370 (157-399) 10^3/cmm Neut % (Auto) 82.7 % Neut # (Auto) 11.24 H (1.8-7.7) 10^3/uL BMP 03/12/24 13:01 Sodium 130 L Potassium 4.7 Chloride 92 L Carbon Dioxide 24 BUN 9 Creatinine 0.7 Glucose 101 Calcium 9.4 Liver Function 03/12/24 Range/Units 13:01 Total Bilirubin 0.4 (0.15-1.2) mg/dL AST 27 (0-32) U/L ALT 22 (0-33) U/L Alkaline Phosphatase 81 (35-105) U/L Albumin 4.2 (3.5-5.2) g/dL Coags 03/12/24 13:01 PT 12.80 INR 0.94 Cardiac Studies: 2 Echocardiogram 08/28/23
--- NOTE | 2024-03-12 14:25 | P.CONIM_ITS ---
Providers/Reason For Consult 2 Consulting Physician/Specialty*: hospitalist Reason for Consult*: left hip fracture Attending Physician: Harriet Morales MD Primary Care Provider: Sergo Aguilar MD History of Present Illness History of Present Illness Marisol Urrutia is a 64 year old femalefall last night around midnight she fell on her left hip having severe left hip pain since then she states her helped her up on the couch but she has not been able to bear any weight Review of Systems 2 Const: Denies: fever(s), chills, body aches or change in appetite Eyes: Denies: blurry vision or eye discomfort Card: Denies: chest pain Resp: Denies: dyspnea GI: Denies: abdominal pain, nausea, vomiting or diarrhea Musc: Reports: extremity pain; Denies: neck pain or back pain Skin/Breast: Denies: rash Neuro: Denies: headache(s) Medications/Allergies Home Medications Medication Instructions Recorded Confirmed Last Taken Type albuterol sulfate 90 mcg/actuation 2 puff inhalation Q6H PRN 05/20/23 03/12/24 Unknown Rx aerosol inhaler shortness of breath or wheezing #8.5 grams multivitamin 1 tab PO DAILY 08/11/23 03/12/24 03/11/24 History aspirin 81 mg tablet,delayed 81 mg PO QAM #90 tabs 09/13/23 03/12/24 03/12/24 Rx release atorvastatin 40 mg tablet 40 mg PO BEDTIME #90 tabs 09/13/23 03/12/24 03/11/24 Rx clopidogrel 75 mg tablet 75 mg PO DAILY #90 tabs 09/13/23 03/12/24 03/12/24 Rx thiamine HCl (vitamin B1) 100 mg 100 mg PO DAILY #90 tabs 10/11/23 03/12/24 03/11/24 Rx tablet amlodipine 5 mg tablet 5 mg PO DAILY #90 tabs 10/15/23 03/12/24 03/12/24 Rx diazepam 5 mg tablet 5 mg PO BID PRN muscle spasm 15 01/16/24 03/12/24 Unknown Rx days #60 tabs diclofenac sodium 75 mg 75 mg PO BID PRN pain #60 tabs 01/23/24 03/12/24 Unknown Rx tablet,delayed release trazodone 50 mg tablet 50 - 100 mg PO BEDTIME PRN Sleep 03/12/24 03/12/24 Unknown History Allergies Allergy/AdvReac Type Severity Reaction Status Date / Time codeine Allergy itchy Verified 01/16/24 11:59 Penicillins AdvReac yeast Verified 01/16/24 11:59 infections Current Medications Generic Name Dose Route Start Last Admin Trade Name Freq PRN Reason Stop Dose Admin Sodium Chloride 1,000 mls @ 100 mls/hr 03/12/24 13:30 03/12/24 13:37 Sodium Chloride 0.9% IV 100 mls/hr .Q10H PATSY Administration Morphine Sulfate 4 mg 03/12/24 13:18 03/12/24 13:31 Morphine 4 Mg/Ml Sdv 1 Ml IVP 4 mg Q4H PRN Administration SEVERE PAIN Pantoprazole Sodium 40 mg 03/12/24 13:30 03/12/24 13:32 Pantoprazole 40 Mg Sdv IVP 40 mg Q24H PATSY Administration PFSH Acute 2 PFSH: Medical History Insomnia Hypertension Alcohol abuse Nicotine addiction Closed fracture of distal ends of right radius and ulna Surgical History Hx of tonsillectomy H/O section Family History Father Stroke Other CAD (coronary artery disease) Cancer Denies family history of Hypertension Social History Smoking and tobacco/nicotine status: former use of tobacco/nicotine Quit status (tobacco/nicotine): has quit using Year quit tobacco: 08/27/23 Alcohol intake: current Substance/Drug Use: never Vitals/I&O/Wt Last Vital Signs Temp 98.3 F 03/12/24 13:52 Pulse 96 03/12/24 13:52 Resp 16 03/12/24 13:52 BP 175/100 03/12/24 13:52 Pulse Ox 97 03/12/24 13:52 O2 Del Method Room Air 03/12/24 14:12 Weight last 48 hrs Weight 115 lb Physical Exam 2 Narrative: Left hip externally rotated. Patient has Salonpas patches on her left hip. Neurovascular intact to the baseline of her stroke she had recently. Urinary Catheter Management: Santamaria: Cath Placed During This Visit: yes Urinary Catheter Date of Insertion: 03/12/24 Urinary Catheter Time of Insertion: 13:51 Data 03/12/24 13:01 03/12/24 13:01 A&P Assessment and plan (1) Closed fracture of left hip: Plan on intramedullary hip nail today Qualifiers: Encounter type: initial encounter Qualified Code(s): S72.002A - Fracture of unspecified part of neck of left femur, initial encounter for closed fracture Coding Level of Care Code Acute Code for Ch[facility] Fwd Diagnoses Closed fracture of left hip, initial encounter S72.002A Encounter type: initial encounter
[2024-03-12] MEDS: ceFAZolin 1,000 mg SDV 2000 MG IVP (15:05)
--- NOTE | 2024-03-12 16:05 | PM.OP ---
Operative Report Date of procedure: March 12, 2024 Pre-op diagnosis: Left intertrochanteric hip fracture Post-op diagnosis: same Procedure done: Left intramedullary hip nail Surgeon: Leonid Lund DO Estimated blood loss (mL): 40 Procedure: Left hip nail Patient brought the op suite after undergoing anesthesia was placed on the [place] table. Traction was applied internal rotation. Reduced fracture. C-arm confirmed the fracture reduced. Patient was then prepped and draped in a sterile fashion. Skin incision made over the proximal greater trochanter. Starting pin was inserted at the tip the greater trochanter. Was inserted. Canal was reamed to 13. A size 11 nail was inserted with 125 degree lag screw anchor. Once the nail is in good position then the wire for the lag screw was placed is in the center center position of the femoral head. Next the reamer was inserted over the wire and then the lag screw was placed 105. Screw was compressed. Walked down with the screw proximally. Next attention was brought to the distal locking screw. This was drilled measured to be 35 and the 35 mm screw was placed. AP lateral fluoroscopy ensured that the nail and fracture were in good position. Wounds were irrigated closed with Vicryl and tiago. Sterile dressings were applied patient is transferred to the PACU in stable condition.
--- NOTE | 2024-03-12 16:45 | ANE.PACU2 ---
Inpatient post-anesthesia follow up: Airway intact: Yes Vital signs: Temperature 98.4 F Pulse Rate 87 Respiratory Rate 17 Blood Pressure 100/62 Pulse Oximetry 93 Oxygen Delivery Me thod Room Air Oxygen Flow Rate Fraction of Inspir ed Oxygen Hydration adequate: Yes Nausea and vomiting: No Pain level: 1 Mental status: Baseline
[2024-03-12] MEDS: HYDROcodone-acetaminophen 5-325 mg Tablet PO ×2 (17:13→21:13)
[2024-03-12] MEDS: nicotine 21 mg Patch 1 PATCH TRANSDERMA (20:02)
[2024-03-12] MEDS: clindamycin 600 MG/50 ML PREMIX 100 MG IV (22:36)
[2024-03-13] VITALS (10 sets, daily range): BP systolic 100–134; BP diastolic 62–71; PULSE 87–108; RESP 15–18; TEMP 36.8–37.2; O2SAT 92–98
[2024-03-13] MEDS: HYDROcodone-acetaminophen 5-325 mg Tablet PO ×4 (02:22→20:27)
[2024-03-13] MEDS: sodium chloride 0.9% 1,000 ML 100 ML IV ×2 (04:45→15:39)
[2024-03-13 06:04] LABS: Basophils % 0.1 %; Hematocrit 24.1 % (36-47); Lymphocytes % 14.7 %; Mean Corpuscular Hemoglobin 30.9 pg (27-33); Mean Corpuscular Volume 90.9 fl (85-98); Mean Platelet Volume 8.9 fL (7.4-10.4); Monocytes # 0.6 10^3/uL (0.2-0.9); Monocytes % 7.8 %; Neutrophils # 5.41 10^3/uL (1.8-7.7); Neutrophils % 77.1 %; Nucleated Red Blood Cells % 0 %; Platelet Count 282 10^3/cmm (157-399); Red Blood Count 2.65 10^6/uL (3.85-5.65); Red Cell Distribution Width 13.1 % (12.1-15.1); White Blood Count 7.02 10^3/uL (3.29-11.43)
[2024-03-13] MEDS: clindamycin 600 MG/50 ML PREMIX 100 MG IV ×2 (06:18→15:38)
[2024-03-13 06:23] LABS: Alanine Aminotransferase 17 U/L (0-33); Albumin Level 3.4 g/dL (3.5-5.2); Alkaline Phosphatase 55 U/L (35-105); Anion Gap 14.7 (5-19); Aspartate Amino Transferase 21 U/L (0-32); Blood Urea Nitrogen 12 mg/dL (8-23); Calcium 8.5 mg/dL (8.5-10.5); Carbon Dioxide 23 mmol/L (22-29); Chloride 101 mmol/L (98-107); Creatinine Clr Calc Pharmacy 62.1961; Globulin 2.1 g/dL (1.3-4.6); Glomerular Filtration Rate 72.4 mL/min (90-130); Glucose 103 mg/dL (65-115); Magnesium 1.9 mg/dL (1.7-2.3); Osmolality Calculated 278 mOsm/kg (285-295); Potassium 4.7 mmol/L (3.5-5.1); Sodium 134 mmol/L (136-145); Total Bilirubin 0.3 mg/dL (0.15-1.2); Total Protein 5.5 g/dL (6.6-8.7)
[2024-03-13] MEDS: nicotine 21 mg Patch 1 PATCH TRANSDERMA (08:42)
--- NOTE | 2024-03-13 10:30 | P.PN_ITS ---
Subjective 2 Subjective: Patient is doing well sitting up in chair. Anticipate discharge tomorrow has been up with physical therapy. Vitals/I&O/Wt Last Vital Signs Temp 98.4 F 03/13/24 07:12 Pulse 98 03/13/24 07:12 Resp 15 03/13/24 07:12 BP 123/71 03/13/24 07:12 Pulse Ox 97 03/13/24 07:12 O2 Del Method Room Air 03/13/24 07:12 03/12/24 03/13/24 03/13/24 22:59 06:59 14:59 Intake Total 986.667 / 587.554 5042 / 2136.667 50 / 50 Output Total 1395 / 1395 300 / 1695 Balance -408.333 / -408.333 850 / 441.667 50 / 50 Weight last 48 hrs Weight 128 lb 6.4 oz Weight 115 lb Weight 115 lb Physical Exam 2 Narrative: Dressing clean dry and intact Urinary Catheter Management: Santamaria: Cath Placed During This Visit: yes Reason for Continuing Indwelling Catheter: Required Immobilization for Trauma or Surgery or Anesthesia Urinary Catheter Date of Insertion: 03/12/24 Urinary Catheter Time of Insertion: 13:51 Data 03/13/24 05:39 03/13/24 05:39 A&P Assessment and plan (1) Closed fracture of left hip: Up with PT DVT prophylaxis with Plavix and aspirin Anticipate discharge home tomorrow Qualifiers: Encounter type: initial encounter Qualified Code(s): S72.002A - Fracture of unspecified part of neck of left femur, initial encounter for closed fracture Attestations 2 Medical Necessity Statement*: Per primary service Coding Level of Care Code Acute Code for Chg Fwd Diagnoses Closed fracture of left hip, initial encounter S72.002A Encounter type: initial encounter
--- NOTE | 2024-03-13 11:43 | P.PN_ITS ---
Subjective 2 Subjective: seen this am no acute events overnight pt asking for valium Vitals/I&O/Wt Last Vital Signs Temp 98.4 F 03/13/24 07:12 Pulse 98 03/13/24 07:12 Resp 15 03/13/24 07:12 BP 123/71 03/13/24 07:12 Pulse Ox 97 03/13/24 07:12 O2 Del Method Room Air 03/13/24 07:12 03/12/24 03/13/24 03/13/24 22:59 06:59 14:59 Intake Total 986.667 / 306.636 1410 / 2136.667 50 / 50 Output Total 1395 / 1395 300 / 1695 Balance -408.333 / -408.333 850 / 441.667 50 / 50 Weight last 48 hrs Weight 58.241 kg Weight 52.163 kg Weight 52.163 kg Physical Exam 2 Narrative: General: Alert oriented x3, patient seen sitting up in recliner edge of bed. HEENT: Normocephalic, atraumatic, EOMI, on room air. Cardio: Regular rate rhythm, normal S1-S2 Respiratory: Clear to auscultation bilaterally GI: Abdomen soft, nontender, bowel sounds + Extremities: surgical bandage present, no edema bilateral lower extremities Dr. Lund and social media strategist at bedside. Urinary Catheter Management: Santamaria: Cath Placed During This Visit: yes Reason for Continuing Indwelling Catheter: Required Immobilization for Trauma or Surgery or Anesthesia Urinary Catheter Date of Insertion: 03/12/24 Urinary Catheter Time of Insertion: 13:51 Data 03/13/24 05:39 03/13/24 05:39 A&P Assessment and plan (1) Hypertension: (2) Closed fracture of left hip: Qualifiers: Encounter type: initial encounter Qualified Code(s): S72.002A - Fracture of unspecified part of neck of left femur, initial encounter for closed fracture (3) Chronic fatigue and malaise: (4) History of stroke: Plan #Left hip fracture #Hypertension #History of alcohol abuse #History of stroke ? Continue aspirin, Plavix, Valium, all home medications with the exception of diclofenac sodium. ? Patient has IV Toradol ordered. I would not mix IV and oral NSAID together. ? Hydrocodone 1 to 2 tablets every 4 hours as needed for pain ? Protonix 40 oral daily. ?Continue atorvastatin, thiamine daily. ? DuoNeb every 6 hours as needed ?PT today. ? Plan for discharge to home tomorrow. -For carotid Dopplers and carotid stenosis patient has to follow-up outpatient with cardiology as previously scheduled. Full code Attestations 2 Medical Necessity Statement*: Greater than 2 midnight stay for management of hip fracture. Diagnoses Hypertension I10 Closed fracture of left hip, initial encounter S72.002A Encounter type: initial encounter Chronic fatigue and malaise R53.82; R53.81 History of stroke Z86.73
[2024-03-13] MEDS: morphine 4 mg/mL SDV 1 mL IVP ×3 (13:31→22:01)
[2024-03-13] MEDS: pantoprazole 40 mg SDV IVP (13:31)
[2024-03-13] MEDS: atorvastatin 40 mg Tablet PO (20:27)
[2024-03-13] MEDS: diazePAM 5 mg Tablet PO (20:27)
[2024-03-13] MEDS: trazodone 100 mg Tablet PO (22:01)
[2024-03-14] VITALS (18 sets, daily range): BP systolic 95–151; BP diastolic 59–86; PULSE 92–116; RESP 16–20; TEMP 36.7–37.7; O2SAT 90–100
[2024-03-14] MEDS: sodium chloride 0.9% 1,000 ML 100 ML IV ×2 (01:15→14:08)
[2024-03-14] MEDS: HYDROcodone-acetaminophen 5-325 mg Tablet PO ×3 (06:01→20:04)
[2024-03-14] MEDS: aspirin 81 mg EC Tablet PO (06:01)
[2024-03-14 06:03] LABS: Basophils % 0.3 %; Eosinophils % 0.1 %; Lymphocytes # 1.6 10^3/uL (0.8-4.8); Lymphocytes % 22.9 %; Mean Corpuscular HGB Conc 32.9 g/dL (30-55); Mean Corpuscular Hemoglobin 30.3 pg (27-33); Mean Corpuscular Volume 92.1 fl (85-98); Mean Platelet Volume 8.9 fL (7.4-10.4); Monocytes # 0.7 10^3/uL (0.2-0.9); Monocytes % 10.1 %; Neutrophils # 4.64 10^3/uL (1.8-7.7); Neutrophils % 66.2 %; Nucleated Red Blood Cells % 0 %; Platelet Count 250 10^3/cmm (157-399); Red Blood Count 2.28 10^6/uL (3.85-5.65); Red Cell Distribution Width 13.4 % (12.1-15.1); White Blood Count 7.02 10^3/uL (3.29-11.43)
[2024-03-14 06:24] LABS: Alanine Aminotransferase 11 U/L (0-33); Alkaline Phosphatase 47 U/L (35-105); Anion Gap 10.8 (5-19); Aspartate Amino Transferase 19 U/L (0-32); Blood Urea Nitrogen 7 mg/dL (8-23); Carbon Dioxide 25 mmol/L (22-29); Chloride 104 mmol/L (98-107); Creatinine Clr Calc Pharmacy 72.1415; Globulin 2.2 g/dL (1.3-4.6); Glomerular Filtration Rate 84.5 mL/min (90-130); Glucose 132 mg/dL (65-115); Magnesium 1.7 mg/dL (1.7-2.3); Osmolality Calculated 282 mOsm/kg (285-295); Potassium 3.8 mmol/L (3.5-5.1); Sodium 136 mmol/L (136-145); Total Bilirubin 0.2 mg/dL (0.15-1.2); Total Protein 5.2 g/dL (6.6-8.7)
[2024-03-14] MEDS: thiamine 100 mg Tablet PO (08:38)
[2024-03-14] MEDS: amlodipine 5 mg Tablet PO (08:38)
[2024-03-14] MEDS: nicotine 21 mg Patch 1 PATCH TRANSDERMA (08:38)
[2024-03-14] MEDS: multivitamin therapeutic Tablet 1 TAB PO (08:38)
[2024-03-14] MEDS: clopidogrel 75 mg Tablet PO (08:38)
--- NOTE | 2024-03-14 09:02 | P.PN_ITS ---
Subjective 2 Subjective: Patient is doing well this morning. Sitting up in bed. Was up with physical therapy yesterday not up yet today. Anticipate discharge home today Vitals/I&O/Wt Last Vital Signs Temp 98.5 F 03/14/24 08:00 Pulse 92 03/14/24 08:26 Resp 18 03/14/24 08:26 BP 95/59 03/14/24 08:00 Pulse Ox 90 03/14/24 08:26 O2 Del Method Room Air 03/14/24 08:26 03/13/24 03/14/24 03/14/24 22:59 06:59 14:59 Intake Total 2150 / 2200 960 / 3160 Output Total 1450 / 1450 375 / 1825 Balance 700 / 750 585 / 1335 Weight last 48 hrs Weight 132 lb 14.4 oz Weight 128 lb 6.4 oz Weight 115 lb Weight 115 lb Physical Exam 2 Narrative: Wound has some drainage okay to change Urinary Catheter Management: Santamaria: Cath Placed During This Visit: yes Reason for Continuing Indwelling Catheter: Required Immobilization for Trauma or Surgery or Anesthesia Urinary Catheter Date of Insertion: 03/12/24 Urinary Catheter Time of Insertion: 13:51 Data 03/14/24 05:31 03/14/24 05:31 A&P Assessment and plan (1) Closed fracture of left hip: Patient is postop day #2 left hip nail. Up with physical therapy DVT prophylaxis with Plavix and aspirin Discharge planning Qualifiers: Encounter type: initial encounter Qualified Code(s): S72.002A - Fracture of unspecified part of neck of left femur, initial encounter for closed fracture Attestations 2 Medical Necessity Statement*: Per primary service Coding Level of Care Code Acute Code for [facility] Fwd Diagnoses Closed fracture of left hip, initial encounter S72.002A Encounter type: initial encounter
[2024-03-14] MEDS: sodium chloride 0.9% 1,000 ML 999 ML IV (09:12)
--- NOTE | 2024-03-14 13:19 | P.PN_ITS ---
Subjective 2 Subjective: seen today hb 6.9 pt feeling weak, dizzy bp soft have ordered rbc x2 units updated pt and family regarding care and further mgmt Vitals/I&O/Wt Last Vital Signs Temp 98.4 F 03/14/24 13:01 Pulse 101 H 03/14/24 13:01 Resp 16 03/14/24 13:01 BP 110/60 03/14/24 13:01 Pulse Ox 97 03/14/24 13:01 O2 Del Method Nasal Cannula 03/14/24 11:20 03/13/24 03/14/24 03/14/24 22:59 06:59 14:59 Intake Total 2150 / 2200 960 / 3160 1240 / 1240 Output Total 1450 / 1450 375 / 1825 Balance 700 / 750 585 / 1335 1240 / 1240 Weight last 48 hrs Weight 60.282 kg Weight 58.241 kg Weight 52.163 kg Physical Exam 2 Narrative: General: Alert oriented x3, patient seen laying in bed HEENT: Normocephalic, atraumatic, EOMI, on room air. Cardio: Regular rate rhythm, normal S1-S2 Respiratory: Clear to auscultation bilaterally GI: Abdomen soft, nontender, bowel sounds + Extremities: surgical bandage present, no edema bilateral lower extremities Urinary Catheter Management: Santamaria: Cath Placed During This Visit: yes Reason for Continuing Indwelling Catheter: Required Immobilization for Trauma or Surgery or Anesthesia Urinary Catheter Date of Insertion: 03/12/24 Urinary Catheter Time of Insertion: 13:51 Data 03/14/24 05:31 03/14/24 05:31 A&P Assessment and plan (1) Hypertension: (2) Closed fracture of left hip: Qualifiers: Encounter type: initial encounter Qualified Code(s): S72.002A - Fracture of unspecified part of neck of left femur, initial encounter for closed fracture (3) Chronic fatigue and malaise: (4) History of stroke: Plan #Left hip fracture s/p nail #Hypertension #History of alcohol abuse #History of stroke #Acute blood loss anemia , postoperative ? Continue aspirin, Plavix, Valium, all home medications with the exception of diclofenac sodium. ? Patient has IV Toradol ordered. I would not mix IV and oral NSAID together. ? Hydrocodone 1 to 2 tablets every 4 hours as needed for pain ? Protonix 40 oral daily. ?Continue atorvastatin, thiamine daily. ? DuoNeb every 6 hours as needed ?PT ordered -For carotid Dopplers and carotid stenosis patient has to follow-up outpatient with cardiology as previously scheduled. -hb low today at 6.9 - order 2 units prbc - goal > 8 - continue to monitor cbc q12h - order ns bolus x1L - have told pt and family hb must be stable for 24 hours prior to dc - pt may require another 48 hour hospitalization Full code Attestations 2 Medical Necessity Statement*: requires further hospitalization due to post=op anemia Diagnoses Hypertension I10 Closed fracture of left hip, initial encounter S72.002A Encounter type: initial encounter Chronic fatigue and malaise R53.82; R53.81 History of stroke Z86.73
[2024-03-14] MEDS: pantoprazole 40 mg SDV IVP (14:09)
[2024-03-14 15:48] LABS: Basophils % 0.4 %; Eosinophils % 0.4 %; Hematocrit 25.2 % (36-47); Lymphocytes # 1.5 10^3/uL (0.8-4.8); Lymphocytes % 19.9 %; Mean Corpuscular HGB Conc 33.7 g/dL (30-55); Mean Platelet Volume 8.8 fL (7.4-10.4); Monocytes # 0.8 10^3/uL (0.2-0.9); Monocytes % 10.2 %; Neutrophils % 68.7 %; Nucleated Red Blood Cells % 0 %; Platelet Count 239 10^3/cmm (157-399); Red Blood Count 2.74 10^6/uL (3.85-5.65); Red Cell Distribution Width 13.2 % (12.1-15.1); White Blood Count 7.57 10^3/uL (3.29-11.43)
--- NOTE | 2024-03-14 18:18 | PC.NURSE ---
pt received 1 unit of rbc, hgb went up from 6.9 to 8.5, confirmed with dr. sherman that she wanted the 2nd unit of rbc given. she confirmed she wanted it given. 2nd unit transfusing now.
--- NOTE | 2024-03-14 19:46 | PC.NURSE ---
Vitals were entered in TAR and auto back timed, correct time with the vitals were documented at 1933.
[2024-03-14] MEDS: atorvastatin 40 mg Tablet PO (20:04)
[2024-03-14] MEDS: diazePAM 5 mg Tablet PO (21:15)
[2024-03-15] MEDS: sodium chloride 0.9% 1,000 ML 100 ML IV ×2 (00:55→11:48)
[2024-03-15] MEDS: HYDROcodone-acetaminophen 5-325 mg Tablet PO ×4 (01:46→15:18)
[2024-03-15 02:01] LABS: Basophils % 0.4 %; Eosinophils # 0.1 10^3/uL (0.0-0.8); Eosinophils % 0.8 %; Hematocrit 30.2 % (36-47); Lymphocytes % 25.7 %; Mean Corpuscular HGB Conc 33.4 g/dL (30-55); Mean Corpuscular Hemoglobin 30.3 pg (27-33); Mean Corpuscular Volume 90.7 fl (85-98); Mean Platelet Volume 8.9 fL (7.4-10.4); Monocytes # 0.8 10^3/uL (0.2-0.9); Monocytes % 10.4 %; Neutrophils # 4.96 10^3/uL (1.8-7.7); Neutrophils % 62.6 %; Nucleated Red Blood Cells % 0 %; Platelet Count 243 10^3/cmm (157-399); Red Blood Count 3.33 10^6/uL (3.85-5.65); Red Cell Distribution Width 13.6 % (12.1-15.1); White Blood Count 7.91 10^3/uL (3.29-11.43)
[2024-03-15 02:25] LABS: Anion Gap 12.7 (5-19); Blood Urea Nitrogen 3 mg/dL (8-23); Calcium 8.5 mg/dL (8.5-10.5); Carbon Dioxide 25 mmol/L (22-29); Chloride 100 mmol/L (98-107); Creatinine Clr Calc Pharmacy 100.9981; Glomerular Filtration Rate 124.6 mL/min (90-130); Glucose 129 mg/dL (65-115); Magnesium 1.6 mg/dL (1.7-2.3); Osmolality Calculated 276 mOsm/kg (285-295); Potassium 3.7 mmol/L (3.5-5.1); Sodium 134 mmol/L (136-145)
[2024-03-15 04:00] VITALS: BP 115/71; PULSE 80; RESP 18; TEMP 36.9; O2SAT 96
[2024-03-15] MEDS: aspirin 81 mg EC Tablet PO (05:46)
[2024-03-15 07:26] VITALS: BP 143/83; PULSE 87; O2SAT 94
[2024-03-15 07:35] VITALS: PULSE 85; RESP 18; O2SAT 93
[2024-03-15] MEDS: diazePAM 5 mg Tablet PO (08:11)
[2024-03-15] MEDS: nicotine 21 mg Patch 1 PATCH TRANSDERMA (08:11)
[2024-03-15] MEDS: amlodipine 5 mg Tablet PO (08:11)
[2024-03-15] MEDS: thiamine 100 mg Tablet PO (08:11)
[2024-03-15] MEDS: clopidogrel 75 mg Tablet PO (08:11)
[2024-03-15] MEDS: multivitamin therapeutic Tablet 1 TAB PO (08:11)
[2024-03-15 11:15] VITALS: BP 142/78; PULSE 90; RESP 16; TEMP 36.7; O2SAT 95
[2024-03-15] MEDS: pantoprazole 40 mg SDV IVP (12:37)
[2024-03-15] MEDS: ketorolac 30 mg/mL INJ IVP (13:22)
--- NOTE | 2024-03-15 14:01 | P.DS_ITS ---
Discharge Providers Date of Admission: 03/12/24 16:39 Date of Discharge: March 15, 2024 Attending Provider at Admission: Harriet Morales MD Attending Provider at Discharge: Harriet Morales MD Primary Care Provider: Sergo Aguilar MD Diagnoses at Discharge Discharge Diagnosis (1) Hypertension: Status: Acute (2) Closed fracture of left hip: Status: Acute Qualifiers: Encounter type: initial encounter Qualified Code(s): S72.002A - Fracture of unspecified part of neck of left femur, initial encounter for closed fracture (3) Chronic fatigue and malaise: Status: Acute (4) History of stroke: Status: Acute Reason for Visit Reason for Visit: fall Hospital Course Hospital Course Patient admitted after a fall for left hip fracture which was operated on 03/12/2024. Patient does have a history of alcohol abuse and stroke. Postop patient developed acute blood loss anemia with hemoglobin 6.9. She was given 2 units packed RBCs. Repeat hemoglobin 10.1 with repeated hemoglobin 12 hours later still 10.1. Patient does carry a history of stroke therefore was sent home on aspirin and Plavix. That should suffice DVT prophylaxis. Patient did have carotid Dopplers done as an outpatient 2 days prior to admission. Result is still pending. She is to follow-up with cardiology as previously scheduled. Patient sent home in stable condition. Physical Exam Narrative: General: Alert oriented x3, patient seen laying in bed HEENT: Normocephalic, atraumatic, EOMI, on room air. Cardio: Regular rate rhythm, normal S1-S2 Respiratory: Clear to auscultation bilaterally GI: Abdomen soft, nontender, bowel sounds + Extremities: surgical bandage present, no edema bilateral lower extremities Urinary Catheter Management: Santamaria: Cath Placed During This Visit: yes Reason for Continuing Indwelling Catheter: Other Urinary Catheter Date of Insertion: 03/12/24 Urinary Catheter Time of Insertion: 13:51 Discharge Data Studies Completed and Pending Completed Studies During Hospitalization Category Date Time Status XR chest 1V portable [id number] Stat Exams 03/12/24 12:50 Completed XR hip LT 2-3V wo/w pel* [id number] Routine Exams 03/12/24 00:00 Completed XR hip LT 2-3V wo/w pel* [id number] Stat Exams 03/12/24 12:50 Completed Pending at discharge Category Date Time Status CBC Auto Diff [Complete Blood Count w/Auto] Q12H Lab 03/15/24 13:25 Ordered CBC Auto Diff [Complete Blood Count w/Auto] Q12H Lab 03/16/24 01:25 Ordered CBC Auto Diff [Complete Blood Count w/Auto] Q12H Lab 03/16/24 13:25 Ordered Radiology Impressions Chest X-Ray 03/12/24 12:50 Impression: Atherosclerosis and hyperinflation. Hip/Pelvis X-Ray 03/12/24 12:50 Impression: Comminuted intertrochanteric fracture of the left hip. Laboratory Results WBC 7.91 10^3/uL (3.29-11.43) 03/15/24 01:38 RBC 3.33 10^6/uL (3.85-5.65) L 03/15/24 01:38 Hgb 10.10 g/dL (11.27-16.99) L 03/15/24 01:38 Hct 30.2 % (36-47) L 03/15/24 01:38 MCV 90.7 fl (85-98) 03/15/24 01:38 MCH 30.3 pg (27-33) 03/15/24 01:38 MCHC 33.4 g/dL (30-55) 03/15/24 01:38 RDW 13.6 % (12.1-15.1) 03/15/24 01:38 Plt Count 243 10^3/cmm (157-399) 03/15/24 01:38 MPV 8.9 fL (7.4-10.4) 03/15/24 01:38 Neut % (Auto) 62.6 % 03/15/24 01:38 Lymph % (Auto) 25.7 % 03/15/24 01:38 Gordon % (Auto) 10.4 % 03/15/24 01:38 Eos % (Auto) 0.8 % 03/15/24 01:38 Baso % (Auto) 0.4 % 03/15/24 01:38 Neut # (Auto) 4.96 10^3/uL (1.8-7.7) 03/15/24 01:38 Lymph # (Auto) 2.0 10^3/uL (0.8-4.8) 03/15/24 01:38 Gordon # (Auto) 0.8 10^3/uL (0.2-0.9) 03/15/24 01:38 Eos # (Auto) 0.1 10^3/uL (0.0-0.8) 03/15/24 01:38 Baso # (Auto) 0.0 10^3/uL (0.0-0.1) 03/15/24 01:38 Nucleated RBC % (auto) 0 % 03/15/24 01:38 Nucleated RBCs # 0.0 /100WBC 03/15/24 01:38 PT 12.80 SECONDS (12.1-14.9) 03/12/24 13:01 INR 0.94 (0.8-1.2) 03/12/24 13:01 Sodium 134 mmol/L (136-145) L 03/15/24 01:38 Potassium 3.7 mmol/L (3.5-5.1) 03/15/24 01:38 Chloride 100 mmol/L (98-107) 03/15/24 01:38 Carbon Dioxide 25 mmol/L (22-29) 03/15/24 01:38 Anion Gap 12.7 (5-19) 03/15/24 01:38 BUN 3 mg/dL (8-23) L 03/15/24 01:38 Creatinine 0.5 mg/dL (0.5-0.9) 03/15/24 01:38 GFR Calculation 124.6 mL/min (90-130) 03/15/24 01:38 Glucose 129 mg/dL (65-115) H 03/15/24 01:38 Calculated Osmolality 276 mOsm/kg (285-295) L 03/15/24 01:38 Lactic Acid 1.4 mmol/L (0.5-2.2) 03/12/24 13:01 Calcium 8.5 mg/dL (8.5-10.5) 03/15/24 01:38 Magnesium 1.6 mg/dL (1.7-2.3) L 03/15/24 01:38 Total Bilirubin 0.2 mg/dL (0.15-1.2) 03/14/24 05:31 AST 19 U/L (0-32) 03/14/24 05:31 ALT 11 U/L (0-33) 03/14/24 05:31 Alkaline Phosphatase 47 U/L (35-105) 03/14/24 05:31 Total Protein 5.2 g/dL (6.6-8.7) L 03/14/24 05:31 Albumin 3.0 g/dL (3.5-5.2) L 03/14/24 05:31 Globulin 2.2 g/dL (1.3-4.6) 03/14/24 05:31 Blood Type B Positive 03/14/24 08:58 Rho(D) Type Rh positive 03/14/24 08:58 Antibody Screen Negative 03/14/24 08:58 Crossmatch See Detail 03/14/24 08:58 Vitals Last Vital Signs Temp 98.0 F 03/15/24 11:15 Pulse 90 03/15/24 11:15 Resp 16 03/15/24 11:15 BP 142/78 03/15/24 11:15 Pulse Ox 95 03/15/24 11:15 O2 Del Method Room Air 03/15/24 11:15 Discharge Plan Discharge Patient Disposition: Home Condition: Stable Prescriptions: New hydrocodone-acetaminophen 5-325 mg Tablet 1 tab PO Q8H PRN (Reason: Breakthrough Pain) Qty: 15 0RF Continued thiamine HCl (vitamin B1) 100 mg tablet 100 mg PO DAILY Qty: 90 2RF diazepam 5 mg tablet 5 mg PO BID PRN (Reason: muscle spasm) 15 Days Qty: 60 2RF aspirin 81 mg tablet,delayed release (DR/EC) 81 mg PO QAM Qty: 90 3RF clopidogrel 75 mg tablet 75 mg PO DAILY Qty: 90 3RF atorvastatin 40 mg tablet 40 mg PO BEDTIME Qty: 90 3RF albuterol sulfate 90 mcg/actuation HFA aerosol inhaler 2 puff inhalation Q6H PRN (Reason: shortness of breath or wheezing) Qty: 8.5 5RF amlodipine 5 mg tablet 5 mg PO DAILY Qty: 90 3RF multivitamin Tablet 1 tab PO DAILY trazodone 50 mg tablet 50 - 100 mg PO BEDTIME PRN (Reason: Sleep) Discontinued diclofenac sodium 75 mg tablet,delayed release (DR/EC) 75 mg PO BID PRN (Reason: pain) Qty: 60 3RF Rx Instructions: instead of the celebrex for arthritic pain Discharge Orders: Discharge Order (Routine); Ordered 03/15/24 Ordered By: Harriet Morales Referrals: Leonid Lund DO [Physician] - 2 weeks (We have notified your physician's clinic of the need for a follow-up appointment to be scheduled. If you have not heard from them within the next 2 business days, please call them directly. ) Sergo Aguilar MD [Primary Care Provider] - 4-7 days (We have notified your physician's clinic of the need for a follow-up appointment to be scheduled. If you have not heard from them within the next 2 business days, please call them directly. ) Orlando Lin M.D [Physician] - 1 week (We have notified your physician's clinic of the need for a follow-up appointment to be scheduled. If you have not heard from them within the next 2 business days, please call them directly. ) Discharge Diet: Cardiac and Diabetic Discharge Activity: Increase activity as tolerated, Use walker/crutches as instructed and As per PT/OT instructions Patient Instructions: Hydrocodone/Acetaminophen (By mouth), Opioid Safety Activity Restrictions/Additional Instructions: You are being discharged from the hospital today during which time you have been under the care of Dr. Lund. You had a left intertrochanteric hip fracture. You were treated for this injury with left intramedullary hip nail. You may resume you normal diet (including any special diets as directed by your primary doctor) as well as your home medications. You should follow up with you primary doctor if you have any questions regarding medication you took prior to your stay in the hospital. You may take your pain medication as prescribed. After the first few days, take your pain medication as needed. Do not drive or drink alcohol while taking your pain medication. Your injury may increase your risk of developing a blood clot,or DVT, in your arm or leg. This could potentially dislodge and travel to your lungs and become a life threatening condition called apulmonary embolus,or PE. You have been prescribed Plavix and aspirin to be taken to prevent this. Frequent movement of the legs will also help prevent this from occurring. If you develop any new or worsening cough, chestpain, bloody sputum or shortness of breath, call 911 or go to the EmergencyRoom. Always keep your surgical incision/dressing clean and dry. If you experience increasing pain at your incision site, redness, swelling, increasing discharge, foul odors, or fevers (greater than 100.4), night sweats or chills you should call the office at the above number. If you feel this is an emergency you should be evaluated in the Emergency Department of a nearby hospital. Orthopedic Patient Instructions Summary: Weight Bearing: Weight-bear as tolerated Activity: As tolerated. Diet: Regular. Wound Care: Keep dressing clean and dry. Change as needed Anticoagulation: Plavix and aspirin Pain Medication: Take only as needed. Ice, rest and elevation will be of great benefit. Please plan to follow-up [facility] Dr Lund in 2 weeks. You will need to call the clinic [phone] to schedule this visit. Thank you far allowing me to participate in your care. Do not hesitate to call the office with any questions or concerns. Discharge Attestations Time Spent in Discharge Care*: greater than 30 min Quality Metrics Clinical Quality Measures [ No reported AMI, CVA or VTE this stay] Coding Level of Care Code Acute Code for [facility] Fwd Diagnoses Hypertension I10 Closed fracture of left hip, initial encounter S72.002A Encounter type: initial encounter Chronic fatigue and malaise R53.82; R53.81 History of stroke Z86.73
[2024-03-15 14:10] LABS: Basophils % 0.3 %; Eosinophils # 0.1 10^3/uL (0.0-0.8); Eosinophils % 0.9 %; Hematocrit 29.5 % (36-47); Lymphocytes # 1.3 10^3/uL (0.8-4.8); Lymphocytes % 17.4 %; Mean Corpuscular HGB Conc 34.2 g/dL (30-55); Mean Corpuscular Hemoglobin 30.6 pg (27-33); Mean Corpuscular Volume 89.4 fl (85-98); Mean Platelet Volume 8.6 fL (7.4-10.4); Monocytes # 0.7 10^3/uL (0.2-0.9); Monocytes % 8.8 %; Neutrophils # 5.43 10^3/uL (1.8-7.7); Neutrophils % 72.3 %; Nucleated Red Blood Cells % 0 %; Platelet Count 242 10^3/cmm (157-399); Red Cell Distribution Width 13.4 % (12.1-15.1); White Blood Count 7.51 10^3/uL (3.29-11.43)
== END 2024-03-15 16:08 | disposition home or self-care (01) | DRG 481 ==
LOC: ER 13:22 → GSGYOACUTE 13:56 → OR 15:44 → MEDSURG 03-13 00:42
PROVIDERS: Orthopaedic Surgery; Admitting Provider Internal Medicine; Emergency Provider Emergency Medicine; PCP Family Medicine; Visit Provider Internal Medicine
PROC: 0QS706Z Reposition Left Upper Femur with Intramedullary Internal Fixation Device, Open Approach (ICD-10-PCS; CPT 27245; principal; 2024-03-12 17:20)
DX: S72.142A Displaced intertrochanteric fracture of left femur, initial encounter for closed fracture (principal); D62 Acute posthemorrhagic anemia; W18.30XA Fall on same level, unspecified, initial encounter; I10 Essential (primary) hypertension; R53.82 Chronic fatigue, unspecified; Z86.73 Personal history of transient ischemic attack (TIA), and cerebral infarction without residual deficits; F10.21 Alcohol dependence, in remission; Z79.82 Long term (current) use of aspirin; Z79.02 Long term (current) use of antithrombotics/antiplatelets; Z72.0 Tobacco use
CPT/HCPCS: 36415; 36430; 51702; 71045; 73502; 76000; 80048; 80053; 83605; 83735; 85025; 85610; 86850; 86900; 86920; 93005; 97110; 97116; 97161; 97166; 97530; 97535; 99285; C1713; C9113; J0690; J1100; J1885; J2250; J2270; J2371; J2405; J2704; J3010; J3490; J7030; P9016

== ENCOUNTER → 2024-03-27 12:46 | Outpatient (BNVA) | payer OTHER, SELFPAY | PROVIDERS: PCP Family Medicine; Visit Provider Orthopaedic Surgery | DX: S72.002A Fracture of unspecified part of neck of left femur, initial encounter for closed fracture (principal); X58.XXXA Exposure to other specified factors, initial encounter | CPT/HCPCS: 73502 ==

== ENCOUNTER → 2024-04-15 11:14 | Outpatient (BNVA) | payer OTHER, SELFPAY | PROVIDERS: PCP Family Medicine; Visit Provider Family Medicine | DX: I10 Essential (primary) hypertension (principal); D51.9 Vitamin B12 deficiency anemia, unspecified; E78.00 Pure hypercholesterolemia, unspecified; I65.22 Occlusion and stenosis of left carotid artery | CPT/HCPCS: 80053; 80061; 82607; 85025 ==

== ENCOUNTER → 2024-04-24 13:24 | Outpatient (BNVA) | payer OTHER, SELFPAY | PROVIDERS: PCP Family Medicine; Visit Provider Orthopaedic Surgery | DX: S72.002A Fracture of unspecified part of neck of left femur, initial encounter for closed fracture (principal); X58.XXXA Exposure to other specified factors, initial encounter | CPT/HCPCS: 73502 ==

== ENCOUNTER → 2024-08-04 12:17 | Outpatient (BNVA) | payer OTHER, SELFPAY | PROVIDERS: PCP Family Medicine; Visit Provider Family Medicine | DX: I10 Essential (primary) hypertension (principal); E78.00 Pure hypercholesterolemia, unspecified; I63.311 Cerebral infarction due to thrombosis of right middle cerebral artery | CPT/HCPCS: 80053; 80061; 85025 ==

== ENCOUNTER 2024-08-25 10:45 | Outpatient (RCR) | payer OTHER, SELFPAY | END 2024-09-04 23:59 | disposition home or self-care (01) | LOC: SPT 10:45 | PROVIDERS: PCP Family Medicine; Visit Provider Family Medicine | DX: S72.002D Fracture of unspecified part of neck of left femur, subsequent encounter for closed fracture with routine healing (principal); X58.XXXD Exposure to other specified factors, subsequent encounter | CPT/HCPCS: 97110; 97162; 97530 ==

== ENCOUNTER 2024-09-05 06:00 | Outpatient (RCR) | payer OTHER, SELFPAY | END 2024-10-04 23:59 | disposition home or self-care (01) | LOC: SPT 06:00 | PROVIDERS: PCP Family Medicine; Visit Provider Family Medicine | DX: S72.002D Fracture of unspecified part of neck of left femur, subsequent encounter for closed fracture with routine healing (principal); X58.XXXD Exposure to other specified factors, subsequent encounter | CPT/HCPCS: 97110; 97112; 97530 ==

== ENCOUNTER 2024-09-12 16:00 | Outpatient (CLI) | payer OTHER, SELFPAY ==
--- NOTE | 2024-09-12 16:15 | USCV_ITS ---
Marisol Urrutia Age: 64 Gender: F : 1960 Exam Date: 09/12/2024 16:10 Ordering Phys: Toby Cabezas MD (Andy) ([email or web address] [place]) Technologist: CT [place] [facility] [place]: stenosis Risk Factors: Previous Vascular Surgery: Right Brachial BP: / Left Brachial BP: / Right Left Velocity (cm/s) Spectral Plaque Velocity (cm/s) Spectral Plaque Syst/Diast Broadening Syst/Diast Broadening 62.10/ 19.30 Prox CCA 41.80 / 12.60 54.30/ 18.00 Mid CCA 30.80 / 0.00 41.40/ 15.20 Distal CCA 21.70 / 0.00 45.40/ 15.10 Prox ICA / 57.30/ 22.70 Mid ICA / 90.60/ 36.90 Distal ICA / 49.90 ECA 39.40 2.20 ICA/CCA Antegrade Vertebral Antegrade 54.70/ 22.70 cm/s 34.10/ 11.30 cm/s Bi Subclavian Tri 111.2 133.3 0 0 FINDINGS comp 03/10/24 CONCLUSIONS Right ICA stenosis <50%. Moderate atheromatous plaque right carotid bulb/ICA. LEFT ICA is occluded at the bulb and remains occluded distally. This is unchanged since previous. LEFT CCA is patent LEFT ECA is patent Intimal thickening in the common carotid arteries and internal carotid arteries bilaterally. Normal antegrade Doppler flow noted in the right vertebral artery. Normal antegrade Doppler flow noted in the left vertebral artery. Sanjiv Morocho MD (Electronically Signed) Final Date: 15 September 2024 09:24 S
== END 2024-09-12 16:01 | disposition home or self-care (01) ==
LOC: RAD 16:01
PROVIDERS: PCP Family Medicine; Visit Provider Thoracic Surgery (Cardiothoracic Vascular Surgery)
DX: I65.23 Occlusion and stenosis of bilateral carotid arteries (principal)
CPT/HCPCS: 93880

== ENCOUNTER 2024-10-05 06:00 | Outpatient (RCR) | payer OTHER, SELFPAY | END 2024-11-04 23:59 | disposition home or self-care (01) | LOC: SPT 06:00 | PROVIDERS: PCP Family Medicine; Visit Provider Family Medicine | DX: S72.002D Fracture of unspecified part of neck of left femur, subsequent encounter for closed fracture with routine healing (principal); X58.XXXD Exposure to other specified factors, subsequent encounter | CPT/HCPCS: 97110; 97530 ==

== ENCOUNTER 2025-05-29 13:38 | Outpatient (CLI) | payer OTHER, SELFPAY ==
--- NOTE | 2025-05-29 14:00 | USCV_ITS ---
Marisol Urrutia Age: 65 Gender: F : 1960 Exam Date: 05/29/2025 13:59 Ordering Phys: Orlando Lin M.D ([email or web address]) Technologist: Dylan Costa Exam Location: [facility] [place] Indication: carotid stenosis Risk Factors: Previous Vascular Surgery: Right Brachial BP: / Left Brachial BP: / Right Left Velocity (cm/s) Spectral Plaque Velocity (cm/s) Spectral Plaque Syst/Diast Broadening Syst/Diast Broadening 63.40/ 23.20 Prox CCA 63.20 / 7.50 64.60/ 21.90 Mid CCA 42.40 / 10.80 60.80/ 20.60 Distal CCA 24.00 / 5.60 60.40/ 24.30 Prox ICA / 119.70/52.20 Mid ICA / 121.60/57.70 Distal ICA / 91.70 ECA 92.60 2.00 ICA/CCA Antegrade Vertebral Antegrade 39.20/ 15.20 cm/s 41.40/ 17.20 cm/s Tri Subclavian Tri 63.30 75.00 FINDINGS Comparison:. 01/30/25 Chronic occlusion of the left ICA. Mild increased velocity and plaque right bifurcation and ICA. Antegrade vertebral arteries. CONCLUSIONS Right ICA stenosis < 50%. Mild progression since the prior exam. Known occluded left ICA. Dr. Esthela Diana DO (Electronically Signed) Final Date: 29 May 2025 14:58 S
== END 2025-05-29 13:39 | disposition home or self-care (01) ==
PROVIDERS: PCP Family Medicine; Visit Provider Internal Medicine
DX: I65.23 Occlusion and stenosis of bilateral carotid arteries (principal)
CPT/HCPCS: 93880

== ENCOUNTER → 2025-07-21 10:59 | Outpatient (BNVA) | payer OTHER, SELFPAY | PROVIDERS: PCP Family Medicine; Visit Provider Family Medicine | DX: I10 Essential (primary) hypertension (principal); E78.00 Pure hypercholesterolemia, unspecified | CPT/HCPCS: 80053; 80061; 85025 ==

== ENCOUNTER 2025-10-13 12:32 | Outpatient (CLI) | payer OTHER, SELFPAY ==
--- NOTE | 2025-10-13 12:45 | USCV_ITS ---
Marisol Urrutia Age: 65 Gender: F : 1960 Exam Date: 10/13/2025 12:47 Ordering Phys: Orlando Lin M.D ([email or web address]) Technologist: CRISTINA Exam Location: [facility] Indication: lt side ica occlusion Risk Factors: Previous Vascular Surgery: Right Brachial BP: / Left Brachial BP: / Right Left Velocity (cm/s) Spectral Plaque Velocity (cm/s) Spectral Plaque Syst/Diast Broadening Syst/Diast Broadening 65.90/ Prox CCA 40.70 / 74.10/ Mid CCA 32.50 / 52.40/ Hetro Distal CCA 18.30 / 39.60/ Hetro Prox ICA / Junior 88.10/ Hetro Mid ICA / Junior 100.10/ Distal ICA / Hetro 66.50 ECA 44.30 1.90 ICA/CCA Antegrade Vertebral Antegrade 59.10/ 18.00 cm/s 41.40/ 18.10 cm/s Bi Subclavian Tri 140.0 54.00 0 FINDINGS Comparison:. 05/29/25 [place] occluded left ICA. Moderate right bifurcation irregular plaque. Mild elevation of velocity right ICA. Antegrade vertebral arteries. CONCLUSIONS Right ICA stenosis < 50%. Complete occlusion left ICA. Chronic. No interval change in stenosis since prior exam. Dr. Esthela Diana DO (Electronically Signed) Final Date: 13 October 2025 15:08 S
== END 2025-10-13 12:33 | disposition home or self-care (01) ==
LOC: RAD 12:42
PROVIDERS: PCP Family Medicine; Visit Provider Internal Medicine
DX: I65.23 Occlusion and stenosis of bilateral carotid arteries (principal)
CPT/HCPCS: 93880